=== PATIENT | male | born 1960 | race Caucasian/White ===

== ENCOUNTER 2020-12-28 14:15 | Observation (INO) | payer OTHER ==
[~2020-12-28] VITALS: Ht 175.3 cm; Wt 84.0 kg
[2020-12-28 15:12] LABS: BASO % 0 % (0-3); EOS # 0.1 x10^3/uL (0.0-0.7); EOS % 2 % (0-3); HEMATOCRIT 44.8 % (39.0-53.0); HEMOGLOBIN 15.3 g/dL (13.0-17.5); LYMPH # 1.4 x10^3/uL (1.0-4.8); LYMPH % 25 % (24-48); MEAN CORPUSCULAR HEMOGLOBIN 32 pg (25-35); MEAN CORPUSCULAR HGB CONC 34 g/dL (31-37); MEAN CORPUSCULAR VOLUME 93 fL (79-100); MONO # 0.5 x10^3/uL (0.0-1.1); MONO % 10 % (0-9); NEUT # 3.5 x10^3uL (1.8-7.7); NEUT % 63 % (31-73); PLATELET COUNT 272 x10^3/uL (140-400); RED CELL DISTRIBUTION WIDTH 13.2 % (11.5-14.5); WHITE BLOOD COUNT 5.6 x10^3/uL (4.0-11.0)
[2020-12-28 15:17] LABS: ALBUMIN 3.8 g/dL (3.4-5.0); ALBUMIN/GLOBULIN RATIO 1.2 (1.0-1.7); CREATININE 1.4 mg/dL (0.7-1.3); GFR 51.4; MAGNESIUM 2.4 mg/dL (1.8-2.4); POTASSIUM 3.9 mmol/L (3.5-5.1); TOTAL BILIRUBIN 0.6 mg/dL (0.2-1.0); TOTAL PROTEIN 7.1 g/dL (6.4-8.2)
[2020-12-28] MEDS ORDERED: MEMA10TA PO (15:47)
[2020-12-28] MEDS ORDERED: ASPI-889 PO (15:47)
[2020-12-28] MEDS ORDERED: ATOR10TA60 PO (15:47)
[2020-12-28] MEDS ORDERED: HALO50AM2 IM (15:47)
[2020-12-28] MEDS ORDERED: LORA2VIA6 PO (15:47)
[2020-12-28] MEDS ORDERED: MEDR150V3 IM (15:47)
[2020-12-28] MEDS ORDERED: HYDR25TA PO (15:47)
[2020-12-28] MEDS ORDERED: AMLO-187 PO (15:47)
[2020-12-28] MEDS ORDERED: HYDR12.572 PO (15:47)
[2020-12-28] MEDS ORDERED: DONE10TA7 PO (15:47)
[2020-12-28] MEDS ORDERED: LISI40TA6 PO (15:47)
[2020-12-28 16:59] VITALS: BP 143/84
[2020-12-28 17:25] LABS: BILIRUBIN,URINE SMALL (NEG); CLARITY,URINE CLEAR; COLOR,URINE YELLOW; GLUCOSE,URINE NEG (NEG); NITRITE,URINE NEG (NEG)
[2020-12-28 17:28] LABS: BACTERIA,URINE FEW /HPF (0-FEW); RBC,URINE 0 /HPF (0-2); WBC,URINE OCC /HPF (0-4)
[2020-12-28 17:29] LABS: SQUAMOUS EPITHELIAL CELL,UR OCC /LPF
--- NOTE | 2020-12-28 17:54 | EKG ---
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
[2020-12-28 20:29] VITALS: BP 166/103
[2020-12-28] MEDS ORDERED: HALOPERIDOL LACT 5 MG/ML VIAL. IM PRN (21:00)
[2020-12-28] MEDS ORDERED: LORA2TAB89 PO (21:08)
[2020-12-28] MEDS ORDERED: hydrOXYzine HCL 25 MG TABLET PO SCH (21:30)
[2020-12-28] MEDS ORDERED: ATORVASTATIN CALCIUM 10 MG TABLET. PO SCH (21:30)
[2020-12-28] MEDS: LISINOPRIL 20 MG TABLET PO SCH (21:38)
[2020-12-28] MEDS: MEMANTINE 10 MG TABLET. PO SCH (21:38)
[2020-12-28] MEDS: LORazepam 1 MG TABLET PO PRN (21:38)
[2020-12-28] MEDS: amLODIPine BESYLATE 10 MG TABLET PO SCH (21:38)
[2020-12-29 02:09] LABS: HEMOGLOBIN A1C 5.9 % (4.8-5.6)
[2020-12-29 07:40] VITALS: BP 131/88
[2020-12-29] MEDS: LISINOPRIL 20 MG TABLET PO SCH (08:15)
[2020-12-29 08:16] VITALS: BP 131/88
[2020-12-29] MEDS: amLODIPine BESYLATE 10 MG TABLET PO SCH (08:16)
[2020-12-29] MEDS: LORazepam 1 MG TABLET PO PRN (08:16)
[2020-12-29] MEDS: MEMANTINE 10 MG TABLET. PO SCH (08:19)
[2020-12-29] MEDS ORDERED: ASPIRIN ENTERIC COATED 81 MG TABLET.DR. PO SCH (09:00)
[2020-12-29] MEDS ORDERED: DONEPEZIL HCL 10 MG TABLET PO SCH (09:00)
[2020-12-29] MEDS ORDERED: hydroCHLOROthiazide 12.5 MG CAPSULE PO SCH (09:00)
--- NOTE | 2020-12-29 09:12 | HP ---
ADMIT DATE: 12/28/2020 ATTENDING PHYSICIAN: Joey Blanca MD We are asked to admit this patient for eventual admission to the Senior Behavioral Unit. He is here for screening for COVID. HISTORY OF PRESENT ILLNESS: The patient is 60 years old. He lives at [facility] in [place], [place]. He is profoundly demented. Unfortunately, he is acting up very impulsive. He jumped out of a window, entered someone else's room, picked up a hammer, threatened people. He is depressed, anxious, restless, refused care. He was admitted for evaluation and adjustment of his medication. PAST MEDICAL HISTORY: In addition to the dementia is significant for hypertension and hyperlipidemia. ALLERGIES: He has no known drug allergies. CURRENT MEDICATIONS: Include amlodipine, aspirin, Lipitor, Aricept, Haldol, hydrochlorothiazide, lisinopril, lorazepam, medroxyprogesterone acetate and Namenda. SOCIAL HISTORY: He is a nonsmoker, nondrinker. FAMILY HISTORY: Unobtainable. REVIEW OF SYSTEMS: Unobtainable due to the patient's condition. PHYSICAL EXAMINATION: GENERAL: When I saw him, this is very agitated and profound gentleman, who is very impulsive. He is not aware of place or time. VITAL SIGNS: Initial vital signs showed a blood pressure of 131/88 mmHg, pulse is 85 per minute and regular, temperature 97.9 degrees Fahrenheit. His oxygen saturation are 98% on room air. HEENT: Head is without trauma. Pupils are reactive. Sclerae nonicteric. Oropharynx is clear. NECK: Supple. No bruits identified. LUNGS: Otherwise clear. CARDIOVASCULAR: Regular heart tones. No gallops. ABDOMEN: Soft. EXTREMITIES: Without edema. Neurologic: The patient is nonverbal to me. He is a little bit lethargic. He has no focal deficits. We cannot do a full neurologic exam due to the patient's confusion. PERTINENT LABORATORY STUDIES: His electrolytes are within normal range. Creatinine is 1.4 mg percent. Hemoglobin A1c 5.9. Hemoglobin maintained at 15.3 grams per deciliter with a white count of 5600. COVID serology is pending. ASSESSMENT: 1. A 60-year-old gentleman, intermediate resident with profound dementia. 2. Behavioral issues with agitation. 3. Hypertension, currently normotensive. 4. Hyperlipidemia. PLAN: 1. Admit to the medical floor. 2. Await coronavirus swab. 3. Continue home meds. 4. Diet as tolerated. 5. I will transfer him upstairs when his coronavirus swab is negative. LAURIE/LYN DR: Michael TID: [id number] CC: ABRIL MARTINEZ MD
--- NOTE | 2020-12-29 09:17 | DS ---
DATE OF DISCHARGE: 12/29/2020 ATTENDING PHYSICIAN: Dr. Blanca. FINAL DISCHARGE DIAGNOSES: 1. Profound dementia with behavioral issues. 2. Hypertension. 3. Hyperlipidemia. HISTORY AND PHYSICAL: The patient is a 60-year-old gentleman, admitted to the medical floor for hold prior to going to the Senior Behavioral Unit. PHYSICAL EXAMINATION: Please see the dictated note. PERTINENT LABORATORY AND X-RAY STUDIES: Normal CBC with differential. Chemistry panel unremarkable. Creatinine 1.4 mg/dL and his coronavirus swab was negative. COURSE IN THE HOSPITAL: Home meds were restarted. He was discharged then to the Senior Behavioral Unit. No changes in medication. We will continue the amlodipine, aspirin, Lipitor, Aricept, Haldol, hydrochlorothiazide, lisinopril, lorazepam and Namenda. Doses unchanged. He was discharged in stable condition with explicit drug and followup care. LAURIE/SHAWN DR: Michael TID: [id number] CC: ABRIL MARTINEZ MD
--- NOTE | 2020-12-29 19:12 | RAD ---
Site ID: [id number] EXAMINATION: XR NECK SOFT TISSUE, XR CHEST 1V. HISTORY: 60 years Male Reason: POSSIBLE FOREIGN BODY. UNABLE TO SWALLOW / Spl. Instructions: / His tory: . . COMPARISON: None. Findings: 2 views soft tissue of the neck demonstrate no radiopaque foreign body except for dental filling and implants. The airway appears patent. There are prominent degenerative changes with large anterior ost eophytes seen in the mid and lower cervical spine levels. PA radiograph of the chest: The lungs are clear. The heart size is normal. There is no effusion or pneumothorax. The mediastinum and jason appear unremarkable. Impression: No acute process. Electronically signed by: Selvin Burns MD (12/29/2020 7:10 PM) [id number]
[2020-12-29 20:10] LABS: THYROID STIM HORMONE (TSH) 0.937 uIU/mL (0.358-3.740)
== END 2020-12-29 09:15 | disposition short-term general hospital (02) ==
LOC: 1 SOUTH 14:15 → INTOOBSV 14:15
PROVIDERS: ADMIT Hospitalist; ATTEND Hospitalist
DX: F03.91 Unspecified dementia, unspecified severity, with behavioral disturbance (principal); Z20.822 Contact with and (suspected) exposure to COVID-19; R45.1 Restlessness and agitation; I10 Essential (primary) hypertension; E78.5 Hyperlipidemia, unspecified; F32.9 Major depressive disorder, single episode, unspecified; Z79.899 Other long term (current) drug therapy; Z98.890 Other specified postprocedural states; Z79.82 Long term (current) use of aspirin; W13.4XXA Fall from, out of or through window, initial encounter; Y93.39 Activity, other involving climbing, rappelling and jumping off; Y92.89 Other specified places as the place of occurrence of the external cause; Y99.8 Other external cause status
CPT/HCPCS: 36415; 70360; 71045; 80053; 80061; 81001; 82306; 82607; 83036; 83735; 84443; 85025; 85379; 86592; 87426; 93005; G0378; G0379; U0003

== ENCOUNTER 2020-12-29 09:17 | Inpatient (IN) | payer OTHER ==
[~2020-12-29] VITALS: Ht 175.3 cm; Wt 85.4 kg
[~2020-12-29 09:17] MED LIST: AMLO-187 PO; ASPI-889 PO; ATOR10TA60 PO; DONE10TA7 PO; HALO50AM2 IM; HYDR12.572 PO; HYDR25TA PO; LISI40TA6 PO; LORA2TAB89 PO; LORA2VIA6 PO; MEDR150V3 IM; MEMA10TA PO
--- NOTE | 2020-12-29 10:56 | NUR ---
EDMUNDO returned call to Melissa, NANDO at [facility] and gave her an update on pt. EDMUNDO informed Melissa of pt incident of attempting to get out the window on the medical floor; however, with him coming up to the unit, he will not be able to do so. Melissa will call Friday, in which EDMUNDO told her to ask for nursing as SW will be out for the holiday or EDMUNDO could check in with her on Friday with an update.
[2020-12-29] MEDS ORDERED: METHYL SALICYLATE/MENTHOL TOPICAL OINTMENT 57GM TUBE. TP PRN (11:15)
[2020-12-29] MEDS ORDERED: MAGNESIUM HYDROXIDE 2,400 MG/30 ML ORAL.SUSP. PO PRN (11:15)
[2020-12-29] MEDS ORDERED: ACETAMINOPHEN 325 MG TABLET PO PRN (11:15)
[2020-12-29] MEDS ORDERED: MAG HYDROX/AL HYDROX/SIMETH 30 ML ORAL.SUSP PO PRN (11:15)
--- NOTE | 2020-12-29 11:17 | NUR ---
Admission Note with Justification for Admission to [facility] Patient admitted to [facility] for protective oversight for emergency stabilization of acute psychiatric crisis. Pt admitted from: 1 south at 0855 via w/c where pt had been admitted for screening from his LTC Facility [facility] Mode of arrival: w/c Accompanied By: [facility] Staff Precipitating behaviors that initiated intake and admission: climbed out a window at his facility then climbed in the window of a house with a hammer, refusing cares, anxious, restless, slapped staff Description of failure of out patient attempts at stabilization in previous setting list behavior and medication trials: redirection, ER visit at [facility], [facility], med changes Behaviors and assessment findings upon admission: pt was brought to [facility] early as he was found climbing out the window on the medical floor, he is confused, oriented x2 to self and current town, drowsy, weaving gait Plan: Admit for protective oversight for adjustment and stabilization of medications, behaviors and mood. Intense treatment regimen including groups, medication adjustments, therapy, consistent regimen for ADL's, self care, and sleep hygiene. Daily monitoring by Inpatient staff, Psychiatry, and Medical Physician.
[2020-12-29 11:18] VITALS: BP 103/73
[2020-12-29] MEDS ORDERED: LORazepam 1 MG TABLET PO PRN (12:15)
--- NOTE | 2020-12-29 15:34 | NUR ---
Call placed to [facility] ([phone]) to inform that Chilo was admitted to [facility] this date and obtain authorization. Per Cody at [facility], patient is in no imminent risk to himself or others despite having eloped out his care facility window entering a neighbor's garage picking up a hammer and entering their home. It was also reported to Cody that Chilo had attempted to elope out hospital window and has had sexually inappropriate behavior. Cody requested to set up a peer to peer review. Peer to peer review has been scheduled for Dr. Smith at 6pm on 12/29/20, [facility] physician will call Dr. Smith for the review. SW contacted Sarahy, , to inform of above information and likeliness that Chilo will not be approved for in patient behavioral health treatment. Sarahy expressed that she plans to call her HR department for guidance as Chilo is covered by her insurance thru her employer.
[2020-12-29 15:53] VITALS: BP 133/90
--- NOTE | 2020-12-29 16:51 | NUR ---
[facility] Social Work Discharge Planning Form Patient Name MARCELINA GALVAN Admit Date: 29 Dec 2020 DISCHARGE PLAN Discharge Destination: Pt to discharge back to [facility] Assessment: N/A Level II Assessment: N/A Transportation: Facility will have to arrangement transportation. Special Instructions/Notes: Please fax over discharge orders, discharge medication list and discharge summary to the fax number listed below. DISCHARGE TO FACILITY Facility: [facility] Address: [address] [place] [address]; [place] [address] Contact Name: Melissa Estevez, Bladder Trimmer: Contact Name: Please ask to speak with the nurse caring for pt upon admission PCP: Shahbaz Montana
--- NOTE | 2020-12-29 18:18 | NUR ---
Nsg note; CT chest at approx 1745 in the dining room, the pt started vomiting. he had excessive amt of saliva that he was unable to swallow so he spit it out. there were no issues with his airway except for the concern of the excessive saliva. he became restless and got out of his chair and was difficult to redirect. his eyes started watering and he developed hiccups. dr babin was called and ordered a CT chest and neck to rule out a esophageal food bolus. pt is currently in radiology accomp by a staff member
--- NOTE | 2020-12-29 19:33 | NUR ---
Insurance DID NOT call Dr. Smith for insurance review as they were scheduled to do.
[2020-12-29] MEDS ORDERED: SCOPOLAMINE 1.5MG PATCH. TD ONE (20:00)
[2020-12-29] MEDS: hydrOXYzine HCL 25 MG TABLET PO SCH (20:28)
[2020-12-29] MEDS: ATORVASTATIN CALCIUM 10 MG TABLET. PO SCH (20:28)
[2020-12-29] MEDS: MEMANTINE 10 MG TABLET. PO SCH (20:28)
--- NOTE | 2020-12-29 21:49 | PDOC ---
Exam Note: Tereso Note: Please also refer to the separate dictated note~for this date of service dictated separately.~Patient seen individually. Discussed the patient with Nursing staff reviewed the chart.~Reviewed interim history and current functioning. Reviewed vital signs,~Labs/ Radiology~and current medications noted below. Continue current treatment with the changes noted in the dictated addendum note Assessment: Vital Signs/I&O: Vital Signs Date Time Temp Pulse Resp B/P (MAP) Pulse Ox O2 Delivery O2 Flow Rate FiO2 12/29/20 15:53 98.2 104 16 133/90 (104) 95 Room Air Current Medications: Meds: Current Medications Medications (Trade) Dose Ordered Sig/Snow Route PRN Reason Start Time Stop Time Status Last Admin Dose Admin Atorvastatin Calcium (Lipitor) 10 mg QHS PO 12/29/20 21:00 12/29/20 20:28 Hydroxyzine HCl (Atarax) 50 mg QHS PO 12/29/20 21:00 12/29/20 20:28 Memantine (Namenda) 10 mg BID PO 12/29/20 21:00 12/29/20 20:28 Scopolamine (Transderm-Scop) 1 patch 1X ONCE TD 12/29/20 20:00 12/29/20 20:04 DC 12/29/20 20:29 I have reviewed the current psychotropics carefully including drug interactions. Risk benefit ratio favors no change other than as noted in my dictated progress note. Diagnosis: Problems: (1) Dementia with behavioral disturbance ABRIL MARTINEZ MD December 29, 2020 21:49
--- NOTE | 2020-12-29 23:15 | NUR ---
The patient is located in the day room on assumption of care. He continues to have excessive saliva production. No significant findings on X-ray. Dr. Evangelist bernardo, order for Scopolamine patch 1.5mg Q3 days ordered. At time of medication administration, patient appears to be feeling a bit better. This nurse asked if he felt able to take medications whole or if he would like them crushed. He opted for crushed and mixed with applesauce. He is disorganized and flat. Restless. He was compliant with assessments. No agitation. Patient denies any current pain or discomfort. He appears to be sleeping comfortably at present time. Will continue to monitor.
[2020-12-30 06:04] VITALS: BP 123/85
[2020-12-30] MEDS: hydroCHLOROthiazide 12.5 MG CAPSULE PO SCH (09:12)
[2020-12-30] MEDS: DONEPEZIL HCL 10 MG TABLET PO SCH (09:12)
[2020-12-30] MEDS: MEMANTINE 10 MG TABLET. PO SCH ×2 (09:12→20:40)
[2020-12-30] MEDS: amLODIPine BESYLATE 10 MG TABLET PO SCH (09:12)
[2020-12-30] MEDS: LISINOPRIL 20 MG TABLET PO SCH (09:13)
[2020-12-30] MEDS: ASPIRIN ENTERIC COATED 81 MG TABLET.DR. PO SCH (09:13)
[2020-12-30 15:46] VITALS: BP 112/71
[2020-12-30] MEDS ORDERED: DIVALPROEX 125 MG CAP.SPRINK PO ONE (19:00)
[2020-12-30] MEDS: ATORVASTATIN CALCIUM 10 MG TABLET. PO SCH (20:40)
[2020-12-30] MEDS: hydrOXYzine HCL 25 MG TABLET PO SCH (20:40)
--- NOTE | 2020-12-30 22:14 | PDOC ---
Exam Note: Tereso Note: Please also refer to the separate dictated note~for this date of service dictated separately.~Patient seen individually. Discussed the patient with Nursing staff reviewed the chart.~Reviewed interim history and current functioning. Reviewed vital signs,~Labs/ Radiology~and current medications noted below. Continue current treatment with the changes noted in the dictated addendum note Assessment: Vital Signs/I&O: Vital Signs Date Time Temp Pulse Resp B/P (MAP) Pulse Ox O2 Delivery O2 Flow Rate FiO2 12/30/20 15:46 97.8 82 16 112/71 (85) 94 12/30/20 06:04 Room Air I & O 12/29/20 12/29/20 12/30/20 15:00 23:00 07:00 Intake Total 240 ml Balance 240 ml Current Medications: Meds: Current Medications Medications (Trade) Dose Ordered Sig/Snow Route PRN Reason Start Time Stop Time Status Last Admin Dose Admin Acetaminophen (Tylenol) 650 mg PRN Q6HRS PRN PO MILD PAIN / TEMP > 100.3'F 12/29/20 11:15 Multi-Ingredient Ointment (Analgesic [place]) 1 dina PRN QID PRN TP MUSCLE PAIN 12/29/20 11:15 Al Hydroxide/Mg Hydroxide (Mylanta Plus Xs) 15 ml PRN AFTMEALHC PRN PO DYSPEPSIA 12/29/20 11:15 Magnesium Hydroxide (Milk Of Magnesia) 2,400 mg PRN QHS PRN PO CONSTIPATION 12/29/20 11:15 Amlodipine Besylate (Norvasc) 10 mg DAILY PO 12/30/20 09:00 12/30/20 09:12 Aspirin (Aspirin Enteric Coated) 81 mg DAILY PO 12/30/20 09:00 12/30/20 09:13 Atorvastatin Calcium (Lipitor) 10 mg QHS PO 12/29/20 21:00 12/30/20 20:40 Donepezil HCl (Aricept) 10 mg DAILY PO 12/30/20 09:00 12/30/20 09:12 Hydrochlorothiazide (Microzide) 12.5 mg DAILY PO 12/30/20 09:00 12/30/20 09:12 Hydroxyzine HCl (Atarax) 50 mg QHS PO 12/29/20 21:00 12/30/20 20:40 Memantine (Namenda) 10 mg BID PO 12/29/20 21:00 12/30/20 20:40 Lisinopril (Prinivil) 40 mg DAILY PO 12/30/20 09:00 12/30/20 09:13 Lorazepam (Ativan) 2 mg PRN Q8HRS PRN PO ANXIETY / AGITATION 12/29/20 12:15 Scopolamine (Transderm-Scop) 1 patch 1X ONCE TD 12/29/20 20:00 12/29/20 20:04 DC 12/29/20 20:29 Divalproex Sodium (Depakote Sprinkles) 250 mg 1X ONCE PO 12/30/20 19:00 12/30/20 19:01 DC 12/30/20 20:40 Divalproex Sodium (Depakote Sprinkles) 125 mg BID PO 12/31/20 09:00 Current Medications Medications (Trade) Dose Ordered Sig/Snow Route PRN Reason Start Time Stop Time Status Last Admin Dose Admin Amlodipine Besylate (Norvasc) 10 mg DAILY PO 12/30/20 09:00 12/30/20 09:12 Aspirin (Aspirin Enteric Coated) 81 mg DAILY PO 12/30/20 09:00 12/30/20 09:13 Donepezil HCl (Aricept) 10 mg DAILY PO 12/30/20 09:00 12/30/20 09:12 Hydrochlorothiazide (Microzide) 12.5 mg DAILY PO 12/30/20 09:00 12/30/20 09:12 Lisinopril (Prinivil) 40 mg DAILY PO 12/30/20 09:00 12/30/20 09:13 Divalproex Sodium (Depakote Sprinkles) 250 mg 1X ONCE PO 12/30/20 19:00 12/30/20 19:01 DC 12/30/20 20:40 I have reviewed the current psychotropics carefully including drug interactions. Risk benefit ratio favors no change other than as noted in my dictated progress note. Diagnosis: Problems: (1) Major neurocognitive disorder (2) Dementia with behavioral disturbance ABRIL MARTINEZ MD December 30, 2020 22:14
--- NOTE | 2020-12-30 23:44 | PN ---
DATE: 12/30/2020 PSYCHIATRIC PROGRESS NOTE This note covers elements not covered in my initial note 12/30/2020. SUBJECTIVE: I met with the patient in the evening of 12/30/2020 and staff had called me earlier in the day. The patient remains extremely impulsive. He is choking and possibly aspirating at one point, will defer medical management to Dr. Hernández. This evening he has been putting himself on the floor, anxious, restless, quite labile in his mood and somewhat paranoid. REVIEW OF SYSTEMS: No CV, , pulmonary, eye, ENT system symptoms on review. MENTAL STATUS EXAMINATION: Oriented to himself. Insight, judgment, recent and remote memory, attention, concentration, fund of knowledge poor consistent with his diagnosis. LABORATORY DATA: Reviewed. IMPRESSION: Major neurocognitive disorder, multifactorial, possibly Alzheimer, vascular frontotemporal with delusion, depression, behavioral disturbance, anxiety disorder, unspecified; impulse control disorder, unspecified. PLAN: I have carefully reviewed current psychotropics drug interactions. We will start Depakote sprinkles 125 mg at 9 a.m., 5:00 p.m. Check CBC, CMP, valproic acid level, ammonia level in 3 days. Consider adding an SSRI agent, perhaps Zoloft, may need Seroquel as an atypical antipsychotic. We will make further adjustments as clinically indicated. SHERRI QUINTERO: Kamla TID: [id number]
--- NOTE | 2020-12-30 23:56 | NUR ---
Pt restless and wandering unit this evening. Pt has flat affect and refused to speak and respond to questions. Pt put himself on the floor and refused to get up. Pt refused HS medications but later was compliant.
--- NOTE | 2020-12-30 23:58 | HP ---
ADMIT DATE: 12/29/2020 This is a late entry, date of service 12/29, covers elements not covered in my initial note of 12/29. I met with the patient evening of 12/29 for this evaluation. Previously discussed with, Kori Mc, patient coordinator several times including prior to admission and since admission regarding discussion about [id number] review with the physician from [facility]. I was supposed to receive a call at 6:00 p.m. on 12/29 from the physician reviewed, but never received this call for the prior authorization. IDENTIFYING DATA: The patient is a 66-year-old male referred to us from [facility] on account of worsening dementia, agitation. The patient's behaviors have been dangerous. He tried to jump out of a window, was pacing the hallways, laughing inappropriately "wanting to go." He had entered someone's home and picked up a hammer. Behaviors were deemed dangerous, unmanageable, had failed outpatient psychiatric interventions resulting in this referral. He was refusing cares, depressed, anxious, restless, rearranging furniture, slapped staff on the butt. CHIEF COMPLAINT:."No." The patient is quite confused, demented. He was on [facility] medical-surgical floor prior to coming to the [facility] health unit psychiatry service when he was having a PCR test for the COVID-19. At that time, he was found trying to jump out of a second floor window and a passerby noticed him trying to jump out of the window, alerted the nursing staff when he was nabbed just in time. The fall itself could have been significantly dangerous from that height. The patient has had progressive dementia, delusions, sleep and appetite changes, paranoia and extreme impulsive behaviors noted above. PAST PSYCHIATRIC HISTORY: As above. PAST MEDICAL HISTORY: Positive for hypertension, hyperlipidemia. DRUG ALLERGIES: Negative. CODE STATUS: Full code. ACCU-CHEKS: None. Ambulates independently. DIET: Regular. MEDICATIONS: Takes medications whole. Current psychotropics, hydroxyzine 50 mg at bedtime, Namenda 10 mg b.i.d., Aricept 10 mg a day. FAMILY HISTORY: Noncontributory. SOCIAL HISTORY: No history of alcohol, drug abuse, physical, sexual or elder abuse. He is not known to be a perpetrator. Reaction to hospitalization, the patient oblivious of it. REVIEW OF SYSTEMS: No CV, , pulmonary, eye, ENT system symptoms on review. MENTAL STATUS EXAMINATION: Oriented to himself. Insight, judgment, recent and remote memory, attention, concentration, fund of knowledge poor consistent with his diagnosis. IMPRESSION: Major neurocognitive disorder, unspecified, perhaps Alzheimer, vascular, frontotemporal with delusion, depression, behavioral disturbance, anxiety disorder, unspecified; impulse control disorder, unspecified. The patient was also noted to be an aspiration risk. Rest of diagnoses as noted above. PLAN: Admit to geropsychiatry unit at [facility]. I see the patient daily individually from a psychiatric standpoint. Medical followup with Dr. Pope/Dr. Blanca. Continue the patient on his current psychotropics. Observe baseline. Consider Depakote for his impulse control problems. Start Depakote sprinkles 125 mg 9.00 a.m. and 5:00 p.m. Check CBC, CMP, valproic acid level, ammonia level in 3 days. Consider SSRIs for mood and anxiety symptoms. If there were delusions, hallucinations noted, we will use atypical antipsychotics. ESTIMATED LENGTH OF STAY: 10-12 days. DISPOSITION PLANS: Back to [facility] and stable. YI/OZZY DR: YI/socorro TID: [id number]
[2020-12-31 05:31] VITALS: BP 112/76
--- NOTE | 2020-12-31 07:36 | RAD ---
CT HEAD/BRAIN WO Date: 12/31/2020 6:22 AM Clinical Indication: confusion, ams Comparison: None. Technique: 5 mm axial tomographic images were obtained of the head without contrast. These were view ed on brain and bone windows. One or more of the following dose reduction techniques were utilized: A utomated exposure control (AEC), Adjustment of mA and/or kV according to patient size, Use of iterati ve reconstruction technique such as ASiR, CT scan done according to ALARA and image gently/image dumont ly Findings: Mild generalized cerebral and cerebellar volume loss. Moderate nonspecific periventricular hypoattenu ation, most commonly seen with chronic small vessel ischemic disease. Calcified atherosclerosis of th e bilateral cavernous and paraclinoid internal carotid arteries. No intra- or extra-axial mass or fluid collection. No acute hemorrhage. The ventricles are normal in size, shape, and morphology. The sotelo-white matter junction is normal. The subarachnoid cisterns are patent. The visualized paranasal sinuses are normal. The visualized portions of the orbits and globes are no rmal. The mastoid air cells are clear. The grant officer topogram shows no lytic lesion or fracture. Impression: No acute intracranial process. Mild cerebral volume loss. Moderate chronic small vessel ischemic disease. Electronically signed by: Jose David Hernandez MD (12/31/2020 7:34 AM) [id number]
[2020-12-31] MEDS: DIVALPROEX 125 MG CAP.SPRINK PO SCH ×2 (08:10→19:59)
[2020-12-31] MEDS: ASPIRIN ENTERIC COATED 81 MG TABLET.DR. PO SCH (08:11)
[2020-12-31] MEDS: MEMANTINE 10 MG TABLET. PO SCH ×2 (08:11→19:59)
[2020-12-31] MEDS: amLODIPine BESYLATE 10 MG TABLET PO SCH (08:11)
[2020-12-31] MEDS: DONEPEZIL HCL 10 MG TABLET PO SCH (08:11)
[2020-12-31] MEDS: LISINOPRIL 20 MG TABLET PO SCH (08:11)
[2020-12-31] MEDS: hydroCHLOROthiazide 12.5 MG CAPSULE PO SCH (08:11)
--- NOTE | 2020-12-31 10:11 | NUR ---
Pt has mild restlessness this morning. Multiple attempts were made by him to self exit w/c, this nurse provided encouragement and education about fall risk and he agreed to stay in w/c. He is A&O to self and place only. He reports mild pain in his neck d/t sleeping in an uncomfortable position. He is absent of SI/HI/VH/AH/delusions at this time. He is compliant with medications crushed and mixed with chocolate milk. Plan of care continues, will pass to next shift.
--- NOTE | 2020-12-31 11:38 | NUR ---
Pt has begun vomiting heavy amounts of saliva and food. This severe vomiting occurred the late afternoon of 12/29/20. Pt denies pain or discomfort. BS active. Dr Evangelist nath and the following orders were given: Swallow eval, thin liquids only, hold all PO medications, run obstructive series.
[2020-12-31 15:40] VITALS: BP 106/70
--- NOTE | 2020-12-31 19:02 | RAD ---
Study: XR ABDOMEN COMP ACUTE Indication: Frequent vomiting. Comparison: None. Findings: No confluent airspace infiltrate, pleural effusion or pneumothorax. Within normal limits cardiomedias tinal silhouette and jason. The bowel gas pattern is nonobstructive. No pneumoperitoneum. Only a small amount of well-formed stool within the colon. Impression: 1. Nonobstructive bowel gas pattern. No pneumoperitoneum. 2. No acute radiographic abnormality of the chest. Electronically signed by: DENEEN HERNDON MD (12/31/2020 7:00 PM) [facility]
[2020-12-31] MEDS: hydrOXYzine HCL 25 MG TABLET PO SCH (19:59)
[2020-12-31] MEDS: ATORVASTATIN CALCIUM 10 MG TABLET. PO SCH (19:59)
--- NOTE | 2020-12-31 22:09 | PDOC ---
Exam Note: Tereso Note: Please also refer to the separate dictated note~for this date of service dictated separately.~Patient seen individually. Discussed the patient with Nursing staff reviewed the chart.~Reviewed interim history and current functioning. Reviewed vital signs,~Labs/ Radiology~and current medications noted below. Continue current treatment with the changes noted in the dictated addendum note Assessment: Vital Signs/I&O: Vital Signs Date Time Temp Pulse Resp B/P (MAP) Pulse Ox O2 Delivery O2 Flow Rate FiO2 12/31/20 15:40 98.7 66 18 106/70 (82) 99 12/30/20 06:04 Room Air I & O 12/30/20 12/30/20 12/31/20 15:00 23:00 07:00 Intake Total 120 ml 120 ml Balance 120 ml 120 ml Current Medications: Meds: Current Medications Medications (Trade) Dose Ordered Sig/Snow Route PRN Reason Start Time Stop Time Status Last Admin Dose Admin Acetaminophen (Tylenol) 650 mg PRN Q6HRS PRN PO MILD PAIN / TEMP > 100.3'F 12/29/20 11:15 Multi-Ingredient Ointment (Analgesic [place]) 1 dina PRN QID PRN TP MUSCLE PAIN 12/29/20 11:15 Al Hydroxide/Mg Hydroxide (Mylanta Plus Xs) 15 ml PRN AFTMEALHC PRN PO DYSPEPSIA 12/29/20 11:15 Magnesium Hydroxide (Milk Of Magnesia) 2,400 mg PRN QHS PRN PO CONSTIPATION 12/29/20 11:15 Amlodipine Besylate (Norvasc) 10 mg DAILY PO 12/30/20 09:00 12/31/20 08:11 Aspirin (Aspirin Enteric Coated) 81 mg DAILY PO 12/30/20 09:00 12/31/20 08:11 Atorvastatin Calcium (Lipitor) 10 mg QHS PO 12/29/20 21:00 12/30/20 20:40 Donepezil HCl (Aricept) 10 mg DAILY PO 12/30/20 09:00 12/31/20 08:11 Hydrochlorothiazide (Microzide) 12.5 mg DAILY PO 12/30/20 09:00 12/31/20 08:11 Hydroxyzine HCl (Atarax) 50 mg QHS PO 12/29/20 21:00 12/30/20 20:40 Memantine (Namenda) 10 mg BID PO 12/29/20 21:00 12/31/20 08:11 Lisinopril (Prinivil) 40 mg DAILY PO 12/30/20 09:00 12/31/20 08:11 Lorazepam (Ativan) 2 mg PRN Q8HRS PRN PO ANXIETY / AGITATION 12/29/20 12:15 Scopolamine (Transderm-Scop) 1 patch 1X ONCE TD 12/29/20 20:00 12/29/20 20:04 DC 12/29/20 20:29 Divalproex Sodium (Depakote Sprinkles) 250 mg 1X ONCE PO 12/30/20 19:00 12/30/20 19:01 DC 12/30/20 20:40 Divalproex Sodium (Depakote Sprinkles) 125 mg BID PO 12/31/20 09:00 12/31/20 08:10 Current Medications Medications (Trade) Dose Ordered Sig/Snow Route PRN Reason Start Time Stop Time Status Last Admin Dose Admin Divalproex Sodium (Depakote Sprinkles) 125 mg BID PO 12/31/20 09:00 12/31/20 08:10 I have reviewed the current psychotropics carefully including drug interactions. Risk benefit ratio favors no change other than as noted in my dictated progress note. Diagnosis: Problems: (1) Dementia in Alzheimer's disease with depression (2) Dementia in Alzheimer's disease with delusions (3) Dementia, vascular, with delusions (4) Dementia, vascular, with depression (5) Anxiety disorder, unspecified (6) Impulse control disorder, unspecified (7) Major neurocognitive disorder ABRIL MARTINEZ MD December 31, 2020 22:09
--- NOTE | 2020-12-31 22:57 | NUR ---
Pt's HS medications held d/t Dr. Blanca's orders. Pt wandering unit, intrusive with other pts. Pt found laying in other pt's beds numerous times. Agitated and combative with redirection. Restless once taken to bed.
[2021-01-01 06:19] VITALS: BP 100/66
--- NOTE | 2021-01-01 07:04 | PDOC ---
Exam Note: Tereso Note: This note is a late entry for 12/31/2020 covers elements not covered in my initial note. Subjective: The patient was seen individually in the evening of 12/31/2020 with Aissatou BOWLING, discussed and reviewed the chart. He has had some projectile vomiting. Dr. Blanca has recommended for the patient to be NPO. CT abdomen unremarkable. CT head unremarkable. Review of Systems: Ambulation impaired in wheelchair due to unsteady gait but then ambulating better in the evening. No CV, , pulmonary, eye, ENT system symptoms on review. Mental Status Exam: The patient is oriented to himself. Insight and judgment, recent and remote memory, attention and concentration, fund of knowledge is poor consistent with his diagnoses. Laboratory Data: Reviewed. Impression: Major neurocognitive disorder Alzheimer vascular with delusion, depression, behavioral disturbance. Anxiety disorder unspecified. Impulse control disorder unspecified. Plan: We are unable to start psychotropics given his medical condition. We will reassess when we are able to give him oral meds. Risk-benefit ratio favors no intramuscular psychotropics for now. Assessment: Vital Signs/I&O: Vital Signs Date Time Temp Pulse Resp B/P (MAP) Pulse Ox O2 Delivery O2 Flow Rate FiO2 01/01/21 06:19 98.2 67 16 100/66 (77) 96 12/30/20 06:04 Room Air I & O 12/31/20 12/31/20 01/01/21 14:59 22:59 06:59 Intake Total 480 ml 540 ml Balance 480 ml 540 ml Current Medications: Meds: Current Medications Medications (Trade) Dose Ordered Sig/Snow Route PRN Reason Start Time Stop Time Status Last Admin Dose Admin Acetaminophen (Tylenol) 650 mg PRN Q6HRS PRN PO MILD PAIN / TEMP > 100.3'F 12/29/20 11:15 Multi-Ingredient Ointment (Analgesic [place]) 1 dina PRN QID PRN TP MUSCLE PAIN 12/29/20 11:15 Al Hydroxide/Mg Hydroxide (Mylanta Plus Xs) 15 ml PRN AFTMEALHC PRN PO DYSPEPSIA 12/29/20 11:15 Magnesium Hydroxide (Milk Of Magnesia) 2,400 mg PRN QHS PRN PO CONSTIPATION 12/29/20 11:15 Amlodipine Besylate (Norvasc) 10 mg DAILY PO 12/30/20 09:00 12/31/20 08:11 Aspirin (Aspirin Enteric Coated) 81 mg DAILY PO 12/30/20 09:00 12/31/20 08:11 Atorvastatin Calcium (Lipitor) 10 mg QHS PO 12/29/20 21:00 12/30/20 20:40 Donepezil HCl (Aricept) 10 mg DAILY PO 12/30/20 09:00 12/31/20 08:11 Hydrochlorothiazide (Microzide) 12.5 mg DAILY PO 12/30/20 09:00 12/31/20 08:11 Hydroxyzine HCl (Atarax) 50 mg QHS PO 12/29/20 21:00 12/30/20 20:40 Memantine (Namenda) 10 mg BID PO 12/29/20 21:00 12/31/20 08:11 Lisinopril (Prinivil) 40 mg DAILY PO 12/30/20 09:00 12/31/20 08:11 Lorazepam (Ativan) 2 mg PRN Q8HRS PRN PO ANXIETY / AGITATION 12/29/20 12:15 Scopolamine (Transderm-Scop) 1 patch 1X ONCE TD 12/29/20 20:00 12/29/20 20:04 DC 12/29/20 20:29 Divalproex Sodium (Depakote Sprinkles) 250 mg 1X ONCE PO 12/30/20 19:00 12/30/20 19:01 DC 12/30/20 20:40 Divalproex Sodium (Depakote Sprinkles) 125 mg BID PO 12/31/20 09:00 12/31/20 08:10 Current Medications Medications (Trade) Dose Ordered Sig/Snow Route PRN Reason Start Time Stop Time Status Last Admin Dose Admin Divalproex Sodium (Depakote Sprinkles) 125 mg BID PO 12/31/20 09:00 12/31/20 08:10 I have reviewed the current psychotropics carefully including drug interactions. Risk benefit ratio favors no change other than as noted in my dictated progress note. Diagnosis: Problems: (1) Dementia with behavioral disturbance (2) Major neurocognitive disorder (3) Impulse control disorder, unspecified (4) Anxiety disorder, unspecified (5) Dementia, vascular, with depression (6) Dementia, vascular, with delusions (7) Dementia in Alzheimer's disease with depression (8) Dementia in Alzheimer's disease with delusions ABRIL MARTINEZ MD January 01, 2021 07:04
--- NOTE | 2021-01-01 10:30 | NUR ---
Following orders received from Dr Blanca: upgrade diet to full liquid, resume administration of PO medications.
--- NOTE | 2021-01-01 10:45 | NUR ---
ACTIVITY THERPAY ASSESSMENT completed based on notes, observation and interview. Pt was unwilling to answer assessment questions. Pt was laying in his bed with the lights off. Per notes pt has been moved to a wheelchair because he is unsteady at times. Pt attened an Activity Therapy group and interacted well with peers and staff. Pt danced to [facility] and answered group discussion questions. Per notes pt refuses to answer questions at times and can be restless. Pt placed himself on the floor and refused to get up. Initial goal aimed to increase socialization and engagement. Pt will participate in at least three individual or group Activity Therapy sessions per week. Addendum: 01/01/21 at 1046 by MARLON SAWYER ACT ACTIVITY THERAPY ASSESSMENT AT 1020
--- NOTE | 2021-01-01 13:16 | NUR ---
Pt has been in bed all day after breakfast. He has been appropriate with his interactions with others. He denies SI/HI/VH/AH/delusions/pain. He denies N/V. He is flat in affect and expresses no emotion on his face. After assessment he stated he wanted to go back to bed and sleep some more. Plan of care continues, will pass to next shift.
[2021-01-01] MEDS: DONEPEZIL HCL 10 MG TABLET PO SCH (13:58)
[2021-01-01] MEDS: hydroCHLOROthiazide 12.5 MG CAPSULE PO SCH (13:58)
[2021-01-01] MEDS: ASPIRIN ENTERIC COATED 81 MG TABLET.DR. PO SCH (13:58)
[2021-01-01] MEDS: MEMANTINE 10 MG TABLET. PO SCH ×2 (13:58→20:03)
[2021-01-01] MEDS: DIVALPROEX 125 MG CAP.SPRINK PO SCH ×2 (13:58→20:04)
[2021-01-01] MEDS: LISINOPRIL 20 MG TABLET PO SCH (13:58)
[2021-01-01] MEDS: amLODIPine BESYLATE 10 MG TABLET PO SCH (13:59)
[2021-01-01 16:00] VITALS: BP 100/67
[2021-01-01] MEDS: ATORVASTATIN CALCIUM 10 MG TABLET. PO SCH (20:03)
[2021-01-01] MEDS: hydrOXYzine HCL 25 MG TABLET PO SCH (20:04)
--- NOTE | 2021-01-01 22:12 | PDOC ---
Exam Note: Tereso Note: Please also refer to the separate dictated note~for this date of service dictated separately.~Patient seen individually. Discussed the patient with Nursing staff reviewed the chart.~Reviewed interim history and current functioning. Reviewed vital signs,~Labs/ Radiology~and current medications noted below. Continue current treatment with the changes noted in the dictated addendum note Assessment: Vital Signs/I&O: Vital Signs Date Time Temp Pulse Resp B/P (MAP) Pulse Ox O2 Delivery O2 Flow Rate FiO2 01/01/21 16:00 98.2 67 18 100/67 (78) 97 12/30/20 06:04 Room Air I & O 12/31/20 12/31/20 01/01/21 15:00 23:00 07:00 Intake Total 480 ml 540 ml Balance 480 ml 540 ml Current Medications: Meds: Current Medications Medications (Trade) Dose Ordered Sig/Snow Route PRN Reason Start Time Stop Time Status Last Admin Dose Admin Acetaminophen (Tylenol) 650 mg PRN Q6HRS PRN PO MILD PAIN / TEMP > 100.3'F 12/29/20 11:15 Multi-Ingredient Ointment (Analgesic [place]) 1 dina PRN QID PRN TP MUSCLE PAIN 12/29/20 11:15 Al Hydroxide/Mg Hydroxide (Mylanta Plus Xs) 15 ml PRN AFTMEALHC PRN PO DYSPEPSIA 12/29/20 11:15 Magnesium Hydroxide (Milk Of Magnesia) 2,400 mg PRN QHS PRN PO CONSTIPATION 12/29/20 11:15 Amlodipine Besylate (Norvasc) 10 mg DAILY PO 12/30/20 09:00 01/01/21 13:59 Aspirin (Aspirin Enteric Coated) 81 mg DAILY PO 12/30/20 09:00 01/01/21 13:58 Atorvastatin Calcium (Lipitor) 10 mg QHS PO 12/29/20 21:00 01/01/21 20:03 Donepezil HCl (Aricept) 10 mg DAILY PO 12/30/20 09:00 01/01/21 13:58 Hydrochlorothiazide (Microzide) 12.5 mg DAILY PO 12/30/20 09:00 01/01/21 13:58 Hydroxyzine HCl (Atarax) 50 mg QHS PO 12/29/20 21:00 01/01/21 20:04 Memantine (Namenda) 10 mg BID PO 12/29/20 21:00 01/01/21 20:03 Lisinopril (Prinivil) 40 mg DAILY PO 12/30/20 09:00 01/01/21 13:58 Lorazepam (Ativan) 2 mg PRN Q8HRS PRN PO ANXIETY / AGITATION 12/29/20 12:15 Scopolamine (Transderm-Scop) 1 patch 1X ONCE TD 12/29/20 20:00 12/29/20 20:04 DC 12/29/20 20:29 Divalproex Sodium (Depakote Sprinkles) 250 mg 1X ONCE PO 12/30/20 19:00 12/30/20 19:01 DC 12/30/20 20:40 Divalproex Sodium (Depakote Sprinkles) 125 mg BID PO 12/31/20 09:00 01/01/21 20:04 I have reviewed the current psychotropics carefully including drug interactions. Risk benefit ratio favors no change other than as noted in my dictated progress note. Diagnosis: Problems: (1) Dementia with behavioral disturbance (2) Major neurocognitive disorder (3) Impulse control disorder, unspecified (4) Anxiety disorder, unspecified (5) Dementia, vascular, with depression (6) Dementia, vascular, with delusions (7) Dementia in Alzheimer's disease with depression (8) Dementia in Alzheimer's disease with delusions ABRIL MARTINEZ MD January 01, 2021 22:12
--- NOTE | 2021-01-01 22:17 | NUR ---
Pt highly restless this evening. Pt pacing hallways, up and down from bed and from sitting in dayroom. Compliant with medications. Once placed in bed, pt up and down numerous times and irritable with redirection. Pt currently awake and attempting to come out of his room every few minutes.
[2021-01-02 06:12] VITALS: BP 101/67
[2021-01-02 06:39] LABS: BASO % 1 % (0-3); EOS # 0.2 x10^3/uL (0.0-0.7); EOS % 3 % (0-3); HEMATOCRIT 42.4 % (39.0-53.0); HEMOGLOBIN 14.5 g/dL (13.0-17.5); LYMPH # 2.1 x10^3/uL (1.0-4.8); LYMPH % 33 % (24-48); MEAN CORPUSCULAR HEMOGLOBIN 32 pg (25-35); MEAN CORPUSCULAR HGB CONC 34 g/dL (31-37); MEAN CORPUSCULAR VOLUME 93 fL (79-100); MONO # 0.9 x10^3/uL (0.0-1.1); MONO % 14 % (0-9); NEUT # 3.1 x10^3uL (1.8-7.7); NEUT % 49 % (31-73); PLATELET COUNT 275 x10^3/uL (140-400); RED BLOOD COUNT 4.57 x10^6/uL (4.30-5.70); RED CELL DISTRIBUTION WIDTH 12.7 % (11.5-14.5); WHITE BLOOD COUNT 6.3 x10^3/uL (4.0-11.0)
[2021-01-02 06:55] LABS: ALBUMIN 3.4 g/dL (3.4-5.0); ALK PHOS 87 U/L (46-116); ALT (SGPT) 16 U/L (16-63); ANION GAP 10 (6-14); AST (SGOT) 13 U/L (15-37); BLOOD UREA NITROGEN 20 mg/dL (8-26); BUN/CREATININE RATIO 14 (6-20); CALCIUM 8.7 mg/dL (8.5-10.1); CARBON DIOXIDE 25 mmol/L (21-32); CHLORIDE 107 mmol/L (98-107); CREATININE 1.4 mg/dL (0.7-1.3); GFR 51.4; GLUCOSE 96 mg/dL (70-99); POTASSIUM 3.7 mmol/L (3.5-5.1); SODIUM 142 mmol/L (136-145); TOTAL BILIRUBIN 0.8 mg/dL (0.2-1.0); TOTAL PROTEIN 6.8 g/dL (6.4-8.2)
[2021-01-02 07:00] LABS: VAL ACID 11 mcg/mL (50-100)
[2021-01-02] MEDS: DIVALPROEX 125 MG CAP.SPRINK PO SCH ×3 (08:15→21:00)
[2021-01-02] MEDS: DONEPEZIL HCL 10 MG TABLET PO SCH (08:15)
[2021-01-02] MEDS: ASPIRIN ENTERIC COATED 81 MG TABLET.DR. PO SCH (08:15)
[2021-01-02] MEDS: MEMANTINE 10 MG TABLET. PO SCH ×3 (08:16→21:00)
[2021-01-02] MEDS: amLODIPine BESYLATE 10 MG TABLET PO SCH (08:16)
[2021-01-02] MEDS: hydroCHLOROthiazide 12.5 MG CAPSULE PO SCH (08:16)
[2021-01-02] MEDS: LISINOPRIL 20 MG TABLET PO SCH (08:17)
--- NOTE | 2021-01-02 10:28 | NUR ---
EDMUNDO received voice message from [employer] indicating that Chilo had been authorized for 12/29/20 only, authorization number [id number]. EDMUNDO received additional voice message from Carmen at [employer] [facility] requesting review on Chilo which can be scheduled by calling [phone]. [phone]. EDMUNDO forwarded this information to EDMUNDO [facility] that will be following Chilo's care while hospitalized.
--- NOTE | 2021-01-02 12:48 | NUR ---
Nursing note: Pt in dining room at time of AM med pass and assessment. He wished to have his meds crushed in chocolate pudding, which he was compliant in eating and pt was cooperative with assessment. Pt denied having any pain/concerns. He has been tolerating full liquid diet. Spoke with speech therapy regarding pt's past episodes of vomiting. Speech referred concern back to Dr. Blanca as it is a "GI issue" with his vomiting. Dr. Blanca ordered to advance his diet to a regular diet to see how he tolerates it for the possibility of needing to have a scope. He is currently in the dining room for lunch. Will continue to monitor.
--- NOTE | 2021-01-02 13:05 | NUR ---
WEEKLY ACTIVITY THERAPY NOTE Date of Admission: 12/29/20 Date of AT Assessment: 01/01 Precipitating behaviors that initiated intake and admission:climbed out a window at his facility then climbed in the window of a house with a hammer, refusing cares, anxious, restless, slapped staff Goal aimed: increase socialization and engagement Initial Goal: Pt will participate in at least three individual or group Activity Therapy sessions per week. Weekly progress towards goal: goal evaluation begins next week Group participation level: 1 full Weekly highlights: danced to [place] Friday afternoon Behaviors observed: pleasant during group session, independently answered would you rather questions Plan: goal evaluation begins next week Beneficial adaptations:
[2021-01-02 15:54] VITALS: BP 111/79
[2021-01-02] MEDS: ATORVASTATIN CALCIUM 10 MG TABLET. PO SCH ×2 (20:28→21:00)
[2021-01-02] MEDS: hydrOXYzine HCL 25 MG TABLET PO SCH ×2 (20:28→21:00)
--- NOTE | 2021-01-02 21:53 | PDOC ---
Exam Note: Tereso Note: Please also refer to the separate dictated note~for this date of service dictated separately.~Patient seen individually. Discussed the patient with Nursing staff reviewed the chart.~Reviewed interim history and current functioning. Reviewed vital signs,~Labs/ Radiology~and current medications noted below. Continue current treatment with the changes noted in the dictated addendum note Assessment: Vital Signs/I&O: Vital Signs Date Time Temp Pulse Resp B/P (MAP) Pulse Ox O2 Delivery O2 Flow Rate FiO2 01/02/21 15:54 98.5 89 18 111/79 (90) 95 12/30/20 06:04 Room Air I & O 01/01/21 01/01/21 01/02/21 15:00 23:00 07:00 Intake Total 120 ml 600 ml Balance 120 ml 600 ml Labs: Laboratory Tests Test 01/02/21 06:24 White Blood Count 6.3 x10^3/uL (4.0-11.0) Red Blood Count 4.57 x10^6/uL (4.30-5.70) Hemoglobin 14.5 g/dL (13.0-17.5) Hematocrit 42.4 % (39.0-53.0) Mean Corpuscular Volume 93 fL (79-100) Mean Corpuscular Hemoglobin 32 pg (25-35) Mean Corpuscular Hemoglobin Concent 34 g/dL (31-37) Red Cell Distribution Width 12.7 % (11.5-14.5) Platelet Count 275 x10^3/uL (140-400) Neutrophils (%) (Auto) 49 % (31-73) Lymphocytes (%) (Auto) 33 % (24-48) Monocytes (%) (Auto) 14 % (0-9) H Eosinophils (%) (Auto) 3 % (0-3) Basophils (%) (Auto) 1 % (0-3) Neutrophils # (Auto) 3.1 x10^3uL (1.8-7.7) Lymphocytes # (Auto) 2.1 x10^3/uL (1.0-4.8) Monocytes # (Auto) 0.9 x10^3/uL (0.0-1.1) Eosinophils # (Auto) 0.2 x10^3/uL (0.0-0.7) Basophils # (Auto) 0.0 x10^3/uL (0.0-0.2) Sodium Level 142 mmol/L (136-145) Potassium Level 3.7 mmol/L (3.5-5.1) Chloride Level 107 mmol/L (98-107) Carbon Dioxide Level 25 mmol/L (21-32) Anion Gap 10 (6-14) Blood Urea Nitrogen 20 mg/dL (8-26) Creatinine 1.4 mg/dL (0.7-1.3) H Estimated GFR (Cockcroft-Gault) 51.4 BUN/Creatinine Ratio 14 (6-20) Glucose Level 96 mg/dL (70-99) Calcium Level 8.7 mg/dL (8.5-10.1) Total Bilirubin 0.8 mg/dL (0.2-1.0) Aspartate Amino Transferase (AST) 13 U/L (15-37) L Alanine Aminotransferase (ALT) 16 U/L (16-63) Alkaline Phosphatase 87 U/L (46-116) Ammonia 27 mcmol/L (11-34) Total Protein 6.8 g/dL (6.4-8.2) Albumin 3.4 g/dL (3.4-5.0) Albumin/Globulin Ratio 1.0 (1.0-1.7) Valproic Acid Level 11 mcg/mL (50-100) L Valproic Acid Last Dose Date 12/30/20 Valproic Acid Last Dose Time 1830 Current Medications: Meds: Laboratory Tests Test 01/02/21 06:24 White Blood Count 6.3 x10^3/uL Red Blood Count 4.57 x10^6/uL Hemoglobin 14.5 g/dL Hematocrit 42.4 % Mean Corpuscular Volume 93 fL Mean Corpuscular Hemoglobin 32 pg Mean Corpuscular Hemoglobin Concent 34 g/dL Red Cell Distribution Width 12.7 % Platelet Count 275 x10^3/uL Neutrophils (%) (Auto) 49 % Lymphocytes (%) (Auto) 33 % Monocytes (%) (Auto) 14 % Eosinophils (%) (Auto) 3 % Basophils (%) (Auto) 1 % Neutrophils # (Auto) 3.1 x10^3uL Lymphocytes # (Auto) 2.1 x10^3/uL Monocytes # (Auto) 0.9 x10^3/uL Eosinophils # (Auto) 0.2 x10^3/uL Basophils # (Auto) 0.0 x10^3/uL Sodium Level 142 mmol/L Potassium Level 3.7 mmol/L Chloride Level 107 mmol/L Carbon Dioxide Level 25 mmol/L Anion Gap 10 Blood Urea Nitrogen 20 mg/dL Creatinine 1.4 mg/dL Estimated GFR (Cockcroft-Gault) 51.4 BUN/Creatinine Ratio 14 Glucose Level 96 mg/dL Calcium Level 8.7 mg/dL Total Bilirubin 0.8 mg/dL Aspartate Amino Transf (AST/SGOT) 13 U/L Alanine Aminotransferase (ALT/SGPT) 16 U/L Alkaline Phosphatase 87 U/L Ammonia 27 mcmol/L Total Protein 6.8 g/dL Albumin 3.4 g/dL Albumin/Globulin Ratio 1.0 Valproic Acid (Depakene) Level 11 mcg/mL Valproic Acid Last Dose Date 12/30/20 Valproic Acid Last Dose Time 1830 Current Medications Medications (Trade) Dose Ordered Sig/Snow Route PRN Reason Start Time Stop Time Status Last Admin Dose Admin Acetaminophen (Tylenol) 650 mg PRN Q6HRS PRN PO MILD PAIN / TEMP > 100.3'F 12/29/20 11:15 Multi-Ingredient Ointment (Analgesic [place]) 1 dina PRN QID PRN TP MUSCLE PAIN 12/29/20 11:15 Al Hydroxide/Mg Hydroxide (Mylanta Plus Xs) 15 ml PRN AFTMEALHC PRN PO DYSPEPSIA 12/29/20 11:15 Magnesium Hydroxide (Milk Of Magnesia) 2,400 mg PRN QHS PRN PO CONSTIPATION 12/29/20 11:15 Amlodipine Besylate (Norvasc) 10 mg DAILY PO 12/30/20 09:00 01/02/21 08:16 Aspirin (Aspirin Enteric Coated) 81 mg DAILY PO 12/30/20 09:00 01/02/21 08:15 Atorvastatin Calcium (Lipitor) 10 mg QHS PO 12/29/20 21:00 01/02/21 20:28 Donepezil HCl (Aricept) 10 mg DAILY PO 12/30/20 09:00 01/02/21 08:15 Hydrochlorothiazide (Microzide) 12.5 mg DAILY PO 12/30/20 09:00 01/02/21 08:16 Hydroxyzine HCl (Atarax) 50 mg QHS PO 12/29/20 21:00 01/02/21 20:28 Memantine (Namenda) 10 mg BID PO 12/29/20 21:00 01/02/21 20:27 Lisinopril (Prinivil) 40 mg DAILY PO 12/30/20 09:00 01/02/21 08:17 Lorazepam (Ativan) 2 mg PRN Q8HRS PRN PO ANXIETY / AGITATION 12/29/20 12:15 Scopolamine (Transderm-Scop) 1 patch 1X ONCE TD 12/29/20 20:00 12/29/20 20:04 DC 12/29/20 20:29 Divalproex Sodium (Depakote Sprinkles) 250 mg 1X ONCE PO 12/30/20 19:00 12/30/20 19:01 DC 12/30/20 20:40 Divalproex Sodium (Depakote Sprinkles) 125 mg BID PO 12/31/20 09:00 01/02/21 11:55 DC 01/02/21 08:15 Divalproex Sodium (Depakote Sprinkles) 250 mg BID PO 01/02/21 21:00 01/02/21 20:28 Current Medications Medications (Trade) Dose Ordered Sig/Nsow Route PRN Reason Start Time Stop Time Status Last Admin Dose Admin Divalproex Sodium (Depakote Sprinkles) 250 mg BID PO 01/02/21 21:00 01/02/21 20:28 I have reviewed the current psychotropics carefully including drug interactions. Risk benefit ratio favors no change other than as noted in my dictated progress note. Diagnosis: Problems: (1) Dementia with behavioral disturbance (2) Major neurocognitive disorder (3) Impulse control disorder, unspecified (4) Anxiety disorder, unspecified (5) Dementia, vascular, with depression (6) Dementia, vascular, with delusions (7) Dementia in Alzheimer's disease with depression (8) Dementia in Alzheimer's disease with delusions ABRIL MARTINEZ MD Jan 02, 2021 21:53
--- NOTE | 2021-01-03 01:20 | NUR ---
Nursing Note The patient wandered the unit while awake. The patient was alert to name, date and location. The patient declined to take his medication this shift. The patient declined to answer more than simple replies to assessment questions. The patient is currently sleeping in his room.
[2021-01-03 05:58] VITALS: BP 110/67
--- NOTE | 2021-01-03 06:48 | PDOC ---
Exam Note: Tereso Note: This note is a late entry for 01/01/2021 covers elements not covered in my initial note. Subjective: The patient was seen individually in the evening of 01/01/2021 with Aissatou BOWLING, discussed and reviewed the chart. The patient slept 6 hours previous night. Previous evening he was restless, combative, getting into the room of other patients getting into bed of other female patients room. He has done well with thin liquids and we will take the Depakote Sprinkles. Review of Systems: Ambulation impaired in wheelchair. No CV, , pulmonary, eye, ENT system symptoms on review. Mental Status Exam: The patient is oriented to himself. Insight and judgment, recent and remote memory, attention and concentration, fund of knowledge is poor consistent with his diagnoses. Laboratory Data: Reviewed. Impression: Major neurocognitive disorder Alzheimer vascular with delusion, depression, behavioral disturbance. Anxiety disorder unspecified. Impulse control disorder unspecified. Plan: We will gradually increase the Depakote to reach therapeutic level for her labs level. Maintain rest of the psychotropics unchanged. Assessment: Vital Signs/I&O: Vital Signs Date Time Temp Pulse Resp B/P (MAP) Pulse Ox O2 Delivery O2 Flow Rate FiO2 01/03/21 05:58 97.4 64 16 110/67 (81) 95 Room Air I & O 01/02/21 01/02/21 01/03/21 15:00 23:00 07:00 Intake Total 960 ml 360 ml 300 ml Balance 960 ml 360 ml 300 ml Current Medications: Meds: Current Medications Medications (Trade) Dose Ordered Sig/Snow Route PRN Reason Start Time Stop Time Status Last Admin Dose Admin Acetaminophen (Tylenol) 650 mg PRN Q6HRS PRN PO MILD PAIN / TEMP > 100.3'F 12/29/20 11:15 Multi-Ingredient Ointment (Analgesic [place]) 1 dina PRN QID PRN TP MUSCLE PAIN 12/29/20 11:15 Al Hydroxide/Mg Hydroxide (Mylanta Plus Xs) 15 ml PRN AFTMEALHC PRN PO DYSPEPSIA 12/29/20 11:15 Magnesium Hydroxide (Milk Of Magnesia) 2,400 mg PRN QHS PRN PO CONSTIPATION 12/29/20 11:15 Amlodipine Besylate (Norvasc) 10 mg DAILY PO 12/30/20 09:00 01/02/21 08:16 Aspirin (Aspirin Enteric Coated) 81 mg DAILY PO 12/30/20 09:00 01/02/21 08:15 Atorvastatin Calcium (Lipitor) 10 mg QHS PO 12/29/20 21:00 01/01/21 20:03 Donepezil HCl (Aricept) 10 mg DAILY PO 12/30/20 09:00 01/02/21 08:15 Hydrochlorothiazide (Microzide) 12.5 mg DAILY PO 12/30/20 09:00 01/02/21 08:16 Hydroxyzine HCl (Atarax) 50 mg QHS PO 12/29/20 21:00 01/01/21 20:04 Memantine (Namenda) 10 mg BID PO 12/29/20 21:00 01/02/21 08:16 Lisinopril (Prinivil) 40 mg DAILY PO 12/30/20 09:00 01/02/21 08:17 Lorazepam (Ativan) 2 mg PRN Q8HRS PRN PO ANXIETY / AGITATION 12/29/20 12:15 Scopolamine (Transderm-Scop) 1 patch 1X ONCE TD 12/29/20 20:00 12/29/20 20:04 DC 12/29/20 20:29 Divalproex Sodium (Depakote Sprinkles) 250 mg 1X ONCE PO 12/30/20 19:00 12/30/20 19:01 DC 12/30/20 20:40 Divalproex Sodium (Depakote Sprinkles) 125 mg BID PO 12/31/20 09:00 01/02/21 11:55 DC 01/02/21 08:15 Divalproex Sodium (Depakote Sprinkles) 250 mg BID PO 01/02/21 21:00 I have reviewed the current psychotropics carefully including drug interactions. Risk benefit ratio favors no change other than as noted in my dictated progress note. Diagnosis: Problems: (1) Dementia with behavioral disturbance (2) Major neurocognitive disorder (3) Impulse control disorder, unspecified (4) Anxiety disorder, unspecified (5) Dementia, vascular, with depression (6) Dementia, vascular, with delusions (7) Dementia in Alzheimer's disease with depression (8) Dementia in Alzheimer's disease with delusions ABRIL MARTINEZ MD Jan 03, 2021 06:48
--- NOTE | 2021-01-03 07:24 | PDOC ---
Exam Note: Tereso Note: This note is a late entry for 01/02/2021 covers elements not covered in my initial note. Subjective: The patient was reviewed in the morning of 01/02/2021 for a treatment team meeting with Kori Centeno, Monet Singletary and Demi (public health social worker), Leeanne, activity therapy and Veena BOWLING, discussed and reviewed the chart. The patient slept 6-3/4 hours previous night. Appetite is poor. He has had some vomiting. He may need an endoscopy and is on a full liquid diet initially but later Dr. Blanca decided he can have medications crushed. Valproic acid level is 11 and we will increase the Depakote Sprinkle from 125 mg b.i.d. to 250 mg b.i.d. Check CBC, CMP, valproic acid level in 3 days. Review of Systems: Ambulation impaired in wheelchair. No CV, , pulmonary, eye, ENT system symptoms on review. Mental Status Exam: The patient is oriented to himself. Insight and judgment, recent and remote memory, attention and concentration, fund of knowledge is poor consistent with his diagnoses. Laboratory Data: Reviewed. Impression: Major neurocognitive disorder Alzheimer vascular with delusion, depression, behavioral disturbance. Anxiety disorder unspecified. Impulse control disorder unspecified. Plan: No change from initial note. We will increase Depakote as above. Assessment: Vital Signs/I&O: Vital Signs Date Time Temp Pulse Resp B/P (MAP) Pulse Ox O2 Delivery O2 Flow Rate FiO2 01/03/21 05:58 97.4 64 16 110/67 (81) 95 Room Air I & O 01/02/21 01/02/21 01/03/21 15:00 23:00 07:00 Intake Total 960 ml 360 ml 300 ml Balance 960 ml 360 ml 300 ml Current Medications: Meds: Current Medications Medications (Trade) Dose Ordered Sig/Snow Route PRN Reason Start Time Stop Time Status Last Admin Dose Admin Acetaminophen (Tylenol) 650 mg PRN Q6HRS PRN PO MILD PAIN / TEMP > 100.3'F 12/29/20 11:15 Multi-Ingredient Ointment (Analgesic [place]) 1 dina PRN QID PRN TP MUSCLE PAIN 12/29/20 11:15 Al Hydroxide/Mg Hydroxide (Mylanta Plus Xs) 15 ml PRN AFTMEALHC PRN PO DYSPEPSIA 12/29/20 11:15 Magnesium Hydroxide (Milk Of Magnesia) 2,400 mg PRN QHS PRN PO CONSTIPATION 12/29/20 11:15 Amlodipine Besylate (Norvasc) 10 mg DAILY PO 12/30/20 09:00 01/02/21 08:16 Aspirin (Aspirin Enteric Coated) 81 mg DAILY PO 12/30/20 09:00 01/02/21 08:15 Atorvastatin Calcium (Lipitor) 10 mg QHS PO 12/29/20 21:00 01/01/21 20:03 Donepezil HCl (Aricept) 10 mg DAILY PO 12/30/20 09:00 01/02/21 08:15 Hydrochlorothiazide (Microzide) 12.5 mg DAILY PO 12/30/20 09:00 01/02/21 08:16 Hydroxyzine HCl (Atarax) 50 mg QHS PO 12/29/20 21:00 01/01/21 20:04 Memantine (Namenda) 10 mg BID PO 12/29/20 21:00 01/02/21 08:16 Lisinopril (Prinivil) 40 mg DAILY PO 12/30/20 09:00 01/02/21 08:17 Lorazepam (Ativan) 2 mg PRN Q8HRS PRN PO ANXIETY / AGITATION 12/29/20 12:15 Scopolamine (Transderm-Scop) 1 patch 1X ONCE TD 12/29/20 20:00 12/29/20 20:04 DC 12/29/20 20:29 Divalproex Sodium (Depakote Sprinkles) 250 mg 1X ONCE PO 12/30/20 19:00 12/30/20 19:01 DC 12/30/20 20:40 Divalproex Sodium (Depakote Sprinkles) 125 mg BID PO 12/31/20 09:00 01/02/21 11:55 DC 01/02/21 08:15 Divalproex Sodium (Depakote Sprinkles) 250 mg BID PO 01/02/21 21:00 I have reviewed the current psychotropics carefully including drug interactions. Risk benefit ratio favors no change other than as noted in my dictated progress note. Diagnosis: Problems: (1) Dementia with behavioral disturbance (2) Major neurocognitive disorder (3) Impulse control disorder, unspecified (4) Anxiety disorder, unspecified (5) Dementia, vascular, with depression (6) Dementia, vascular, with delusions (7) Dementia in Alzheimer's disease with depression (8) Dementia in Alzheimer's disease with delusions ABRIL MARTINEZ MD Jan 03, 2021 07:24
[2021-01-03] MEDS: LISINOPRIL 20 MG TABLET PO SCH (08:18)
[2021-01-03] MEDS: MEMANTINE 10 MG TABLET. PO SCH ×3 (08:18→21:00)
[2021-01-03] MEDS: DIVALPROEX 125 MG CAP.SPRINK PO SCH ×3 (08:18→21:00)
[2021-01-03] MEDS: hydroCHLOROthiazide 12.5 MG CAPSULE PO SCH (08:18)
[2021-01-03] MEDS: ASPIRIN ENTERIC COATED 81 MG TABLET.DR. PO SCH (08:18)
[2021-01-03] MEDS: amLODIPine BESYLATE 10 MG TABLET PO SCH (08:19)
[2021-01-03] MEDS: DONEPEZIL HCL 10 MG TABLET PO SCH (08:19)
--- NOTE | 2021-01-03 10:11 | NUR ---
Nursing note: Pt in dining room at time of AM med pass and assessment. He is pleasant, compliant with meds crushed in pudding, and cooperative with assessment. Pt denies having any pain/nausea at time of assessment. He is currently sitting in the day room watching TV. Will continue to monitor.
[2021-01-03 15:29] VITALS: BP 139/82
--- NOTE | 2021-01-03 16:40 | NUR ---
SW contacted pt to give her an update on pt and his behaviors. Pt reports not knowing that pt had been experiencing vomitting in which SW went over those notes and noted that in the last 48 hours pt has not had any issues. Pt is medication compliant with his day meds; however, it appears that pt is refusing his night meds (Lipitor and Atarax). Pt just wants to make sure that his behaviors have subsided prior to discharging back to [facility]. SW will contact pt after completion of the insurance review.
[2021-01-03] MEDS: risperiDONE 0.25 MG TABLET. PO SCH (18:02)
[2021-01-03] MEDS: hydrOXYzine HCL 25 MG TABLET PO SCH ×2 (19:26→21:00)
[2021-01-03] MEDS: ATORVASTATIN CALCIUM 10 MG TABLET. PO SCH ×2 (19:27→21:00)
--- NOTE | 2021-01-03 22:01 | PDOC ---
Exam Note: Tereso Note: Please also refer to the separate dictated note~for this date of service dictated separately.~Patient seen individually. Discussed the patient with Nursing staff reviewed the chart.~Reviewed interim history and current functioning. Reviewed vital signs,~Labs/ Radiology~and current medications noted below. Continue current treatment with the changes noted in the dictated addendum note Assessment: Vital Signs/I&O: Vital Signs Date Time Temp Pulse Resp B/P (MAP) Pulse Ox O2 Delivery O2 Flow Rate FiO2 01/03/21 15:29 98.4 81 18 139/82 (101) 7 01/03/21 05:58 Room Air I & O 01/02/21 01/02/21 01/03/21 15:00 23:00 07:00 Intake Total 960 ml 360 ml 300 ml Balance 960 ml 360 ml 300 ml Current Medications: Meds: Current Medications Medications (Trade) Dose Ordered Sig/Snow Route PRN Reason Start Time Stop Time Status Last Admin Dose Admin Acetaminophen (Tylenol) 650 mg PRN Q6HRS PRN PO MILD PAIN / TEMP > 100.3'F 12/29/20 11:15 Multi-Ingredient Ointment (Analgesic [place]) 1 dina PRN QID PRN TP MUSCLE PAIN 12/29/20 11:15 Al Hydroxide/Mg Hydroxide (Mylanta Plus Xs) 15 ml PRN AFTMEALHC PRN PO DYSPEPSIA 12/29/20 11:15 Magnesium Hydroxide (Milk Of Magnesia) 2,400 mg PRN QHS PRN PO CONSTIPATION 12/29/20 11:15 Amlodipine Besylate (Norvasc) 10 mg DAILY PO 12/30/20 09:00 01/03/21 08:19 Aspirin (Aspirin Enteric Coated) 81 mg DAILY PO 12/30/20 09:00 01/03/21 08:18 Atorvastatin Calcium (Lipitor) 10 mg QHS PO 12/29/20 21:00 01/03/21 19:27 Donepezil HCl (Aricept) 10 mg DAILY PO 12/30/20 09:00 01/03/21 08:19 Hydrochlorothiazide (Microzide) 12.5 mg DAILY PO 12/30/20 09:00 01/03/21 08:18 Hydroxyzine HCl (Atarax) 50 mg QHS PO 12/29/20 21:00 01/03/21 19:26 Memantine (Namenda) 10 mg BID PO 12/29/20 21:00 01/03/21 19:27 Lisinopril (Prinivil) 40 mg DAILY PO 12/30/20 09:00 01/03/21 08:18 Lorazepam (Ativan) 2 mg PRN Q8HRS PRN PO ANXIETY / AGITATION 12/29/20 12:15 Scopolamine (Transderm-Scop) 1 patch 1X ONCE TD 12/29/20 20:00 12/29/20 20:04 DC 12/29/20 20:29 Divalproex Sodium (Depakote Sprinkles) 250 mg 1X ONCE PO 12/30/20 19:00 12/30/20 19:01 DC 12/30/20 20:40 Divalproex Sodium (Depakote Sprinkles) 125 mg BID PO 12/31/20 09:00 01/02/21 11:55 DC 01/02/21 08:15 Divalproex Sodium (Depakote Sprinkles) 250 mg BID PO 01/02/21 21:00 01/03/21 19:27 Risperidone (RisperDAL) 0.25 mg 1500 PO 01/03/21 18:00 01/03/21 18:02 Current Medications Medications (Trade) Dose Ordered Sig/Snow Route PRN Reason Start Time Stop Time Status Last Admin Dose Admin Risperidone (RisperDAL) 0.25 mg 1500 PO 01/03/21 18:00 01/03/21 18:02 I have reviewed the current psychotropics carefully including drug interactions. Risk benefit ratio favors no change other than as noted in my dictated progress note. Diagnosis: Problems: (1) Dementia with behavioral disturbance (2) Major neurocognitive disorder (3) Impulse control disorder, unspecified (4) Anxiety disorder, unspecified (5) Dementia, vascular, with depression (6) Dementia, vascular, with delusions (7) Dementia in Alzheimer's disease with depression (8) Dementia in Alzheimer's disease with delusions ABRIL MARTINEZ MD Jan 03, 2021 22:01
--- NOTE | 2021-01-03 22:45 | NUR ---
Pt refused to take HS pills after multiple attempts. Offered whole and then crushed. Pt with flat affect and not interactive. Allowed assessment, but would not make eye contact or respond to orientation questions. Pt now resting in bed with eyes closed.
[2021-01-04 06:06] VITALS: BP 123/82
[2021-01-04] MEDS: amLODIPine BESYLATE 10 MG TABLET PO SCH (08:41)
[2021-01-04] MEDS: DIVALPROEX 125 MG CAP.SPRINK PO SCH ×3 (08:41→21:00)
[2021-01-04] MEDS: MEMANTINE 10 MG TABLET. PO SCH ×3 (08:41→21:00)
[2021-01-04] MEDS: ASPIRIN ENTERIC COATED 81 MG TABLET.DR. PO SCH (08:41)
[2021-01-04] MEDS: hydroCHLOROthiazide 12.5 MG CAPSULE PO SCH (08:41)
[2021-01-04] MEDS: LISINOPRIL 20 MG TABLET PO SCH (08:41)
[2021-01-04] MEDS: DONEPEZIL HCL 10 MG TABLET PO SCH (08:41)
--- NOTE | 2021-01-04 09:20 | PDOC ---
Exam Note: Tereso Note: This note is a late entry for 01/03/2021 covers elements not covered in my initial note. Subjective: The patient was seen individually in the evening of 01/03/2021 with Matilde BOWLING, discussed and reviewed the chart. The patient slept 6-1/4 hours previous night. He was quite resistive to his medications previous night, paranoid, irritable, pacing the hallway. He is more compliant with taking his medications on the day of 01/03. Towards the evening he gets paranoid, suspicious, but slightly less impulsive since we have initiated the Depakote which has been increased to 250 mg b.i.d. Repeat labs level on the higher dosage are to be completed on 01/05. I walked around the unit with him as he kept pacing, unable to stand still for any length of time, paranoid, suspicious, scowling facial expression. Review of Systems: Ambulation impaired in wheelchair. No CV, , pulmonary, eye, ENT system symptoms on review. Mental Status Exam: The patient is oriented to himself. Insight and judgment, recent and remote memory, attention and concentration, fund of knowledge is poor consistent with his diagnoses. Laboratory Data: Reviewed. Impression: Major neurocognitive disorder Alzheimer vascular with delusion, depression, behavioral disturbance. Anxiety disorder unspecified. Impulse control disorder unspecified. Plan: No change from initial note. Continue Depakote 250 mg b.i.d. Check CBC, CMP, and valproic acid level as noted above. Start Risperdal 0.25 mg at 3 p.m. for his paranoia worsening in the evening. Adjust further as clinically indicated. Assessment: Vital Signs/I&O: Vital Signs Date Time Temp Pulse Resp B/P (MAP) Pulse Ox O2 Delivery O2 Flow Rate FiO2 01/04/21 08:41 71 123/82 01/04/21 06:06 97.5 16 94 Room Air I & O 01/03/21 01/03/21 01/04/21 15:00 23:00 07:00 Intake Total 720 ml 360 ml Balance 720 ml 360 ml Current Medications: Meds: Current Medications Medications (Trade) Dose Ordered Sig/Snow Route PRN Reason Start Time Stop Time Status Last Admin Dose Admin Acetaminophen (Tylenol) 650 mg PRN Q6HRS PRN PO MILD PAIN / TEMP > 100.3'F 12/29/20 11:15 Multi-Ingredient Ointment (Analgesic [place]) 1 dina PRN QID PRN TP MUSCLE PAIN 12/29/20 11:15 Al Hydroxide/Mg Hydroxide (Mylanta Plus Xs) 15 ml PRN AFTMEALHC PRN PO DYSPEPSIA 12/29/20 11:15 Magnesium Hydroxide (Milk Of Magnesia) 2,400 mg PRN QHS PRN PO CONSTIPATION 12/29/20 11:15 Amlodipine Besylate (Norvasc) 10 mg DAILY PO 12/30/20 09:00 01/04/21 08:41 Aspirin (Aspirin Enteric Coated) 81 mg DAILY PO 12/30/20 09:00 01/04/21 08:41 Atorvastatin Calcium (Lipitor) 10 mg QHS PO 12/29/20 21:00 01/01/21 20:03 Donepezil HCl (Aricept) 10 mg DAILY PO 12/30/20 09:00 01/04/21 08:41 Hydrochlorothiazide (Microzide) 12.5 mg DAILY PO 12/30/20 09:00 01/04/21 08:41 Hydroxyzine HCl (Atarax) 50 mg QHS PO 12/29/20 21:00 01/01/21 20:04 Memantine (Namenda) 10 mg BID PO 12/29/20 21:00 01/04/21 08:41 Lisinopril (Prinivil) 40 mg DAILY PO 12/30/20 09:00 01/04/21 08:41 Lorazepam (Ativan) 2 mg PRN Q8HRS PRN PO ANXIETY / AGITATION 12/29/20 12:15 Scopolamine (Transderm-Scop) 1 patch 1X ONCE TD 12/29/20 20:00 12/29/20 20:04 DC 12/29/20 20:29 Divalproex Sodium (Depakote Sprinkles) 250 mg 1X ONCE PO 12/30/20 19:00 12/30/20 19:01 DC 12/30/20 20:40 Divalproex Sodium (Depakote Sprinkles) 125 mg BID PO 12/31/20 09:00 01/02/21 11:55 DC 01/02/21 08:15 Divalproex Sodium (Depakote Sprinkles) 250 mg BID PO 01/02/21 21:00 01/04/21 08:41 Risperidone (RisperDAL) 0.25 mg 1500 PO 01/03/21 18:00 01/03/21 18:02 Current Medications Medications (Trade) Dose Ordered Sig/Snow Route PRN Reason Start Time Stop Time Status Last Admin Dose Admin Risperidone (RisperDAL) 0.25 mg 1500 PO 01/03/21 18:00 01/03/21 18:02 I have reviewed the current psychotropics carefully including drug interactions. Risk benefit ratio favors no change other than as noted in my dictated progress note. Diagnosis: Problems: (1) Dementia with behavioral disturbance (2) Major neurocognitive disorder (3) Impulse control disorder, unspecified (4) Anxiety disorder, unspecified (5) Dementia, vascular, with depression (6) Dementia, vascular, with delusions (7) Dementia in Alzheimer's disease with depression (8) Dementia in Alzheimer's disease with delusions ABRIL MARTINEZ MD Jan 04, 2021 09:20
--- NOTE | 2021-01-04 12:13 | NUR ---
EDMUNDO completed insurance review. Pt has been approved through the weekend with a update or discharge for Monday 01/08.
--- NOTE | 2021-01-04 12:20 | NUR ---
EDMUNDO contacted Melissa, ED at [facility], to update her on pt insurance updates and to let her know discharge for pt would be Friday. Melissa has requested notes on pt since his admit. EDMUNDO will follow up with Melissa on Friday AM re: potato picker time and transport.
--- NOTE | 2021-01-04 13:00 | NUR ---
EDMUNDO contacted pt , Sarahy, and updated her on the insurance approval for Friday. SW gave pt an update on how pt is doing today and can update her for sure on Friday with the final decision on discharge.
--- NOTE | 2021-01-04 13:13 | NUR ---
Nursing note: Pt in his room at time of AM med pass and assessment. He is slightly resistive with his meds crushed in pudding, only taking small bites of the pudding, but did eat the entire spoonful. He has been laying in bed for most of the shift, but occasionally will get up and walk around the unit. During lunch, pt would leave the dining room for a short time and then come back in to eat some more. He is currently resting quietly in his room. Will continue to monitor.
[2021-01-04] MEDS: risperiDONE 0.25 MG TABLET. PO SCH (14:37)
[2021-01-04 15:53] VITALS: BP 108/74
[2021-01-04] MEDS: ATORVASTATIN CALCIUM 10 MG TABLET. PO SCH ×2 (20:12→21:00)
[2021-01-04] MEDS: hydrOXYzine HCL 25 MG TABLET PO SCH (20:13)
--- NOTE | 2021-01-04 21:53 | PDOC ---
Exam Note: Tereso Note: Please also refer to the separate dictated note~for this date of service dictated separately.~Patient seen individually. Discussed the patient with Nursing staff reviewed the chart.~Reviewed interim history and current functioning. Reviewed vital signs,~Labs/ Radiology~and current medications noted below. Continue current treatment with the changes noted in the dictated addendum note Assessment: Vital Signs/I&O: Vital Signs Date Time Temp Pulse Resp B/P (MAP) Pulse Ox O2 Delivery O2 Flow Rate FiO2 01/04/21 15:53 97.8 87 16 108/74 (85) 96 01/04/21 06:06 Room Air I & O 01/03/21 01/03/21 01/04/21 14:59 22:59 06:59 Intake Total 720 ml 360 ml Balance 720 ml 360 ml Labs: Laboratory Tests Test 01/04/21 09:00 SARS-CoV-2 (PCR) Negative (NEGATIVE) Current Medications: Meds: Laboratory Tests Test 01/04/21 09:00 Coronavirus (COVID-19)(PCR) Negative Current Medications Medications (Trade) Dose Ordered Sig/Snow Route PRN Reason Start Time Stop Time Status Last Admin Dose Admin Acetaminophen (Tylenol) 650 mg PRN Q6HRS PRN PO MILD PAIN / TEMP > 100.3'F 12/29/20 11:15 Multi-Ingredient Ointment (Analgesic [place]) 1 dina PRN QID PRN TP MUSCLE PAIN 12/29/20 11:15 Al Hydroxide/Mg Hydroxide (Mylanta Plus Xs) 15 ml PRN AFTMEALHC PRN PO DYSPEPSIA 12/29/20 11:15 Magnesium Hydroxide (Milk Of Magnesia) 2,400 mg PRN QHS PRN PO CONSTIPATION 12/29/20 11:15 Amlodipine Besylate (Norvasc) 10 mg DAILY PO 12/30/20 09:00 01/04/21 08:41 Aspirin (Aspirin Enteric Coated) 81 mg DAILY PO 12/30/20 09:00 01/04/21 08:41 Atorvastatin Calcium (Lipitor) 10 mg QHS PO 12/29/20 21:00 01/04/21 20:12 Donepezil HCl (Aricept) 10 mg DAILY PO 12/30/20 09:00 01/04/21 08:41 Hydrochlorothiazide (Microzide) 12.5 mg DAILY PO 12/30/20 09:00 01/04/21 08:41 Hydroxyzine HCl (Atarax) 50 mg QHS PO 12/29/20 21:00 01/04/21 20:13 Memantine (Namenda) 10 mg BID PO 12/29/20 21:00 01/04/21 20:12 Lisinopril (Prinivil) 40 mg DAILY PO 12/30/20 09:00 01/04/21 08:41 Lorazepam (Ativan) 2 mg PRN Q8HRS PRN PO ANXIETY / AGITATION 12/29/20 12:15 Scopolamine (Transderm-Scop) 1 patch 1X ONCE TD 12/29/20 20:00 12/29/20 20:04 DC 12/29/20 20:29 Divalproex Sodium (Depakote Sprinkles) 250 mg 1X ONCE PO 12/30/20 19:00 12/30/20 19:01 DC 12/30/20 20:40 Divalproex Sodium (Depakote Sprinkles) 125 mg BID PO 12/31/20 09:00 01/02/21 11:55 DC 01/02/21 08:15 Divalproex Sodium (Depakote Sprinkles) 250 mg BID PO 01/02/21 21:00 01/04/21 20:12 Risperidone (RisperDAL) 0.25 mg 1500 PO 01/03/21 18:00 01/04/21 14:37 I have reviewed the current psychotropics carefully including drug interactions. Risk benefit ratio favors no change other than as noted in my dictated progress note. Diagnosis: Problems: (1) Dementia with behavioral disturbance (2) Major neurocognitive disorder (3) Impulse control disorder, unspecified (4) Anxiety disorder, unspecified (5) Dementia, vascular, with depression (6) Dementia, vascular, with delusions (7) Dementia in Alzheimer's disease with depression (8) Dementia in Alzheimer's disease with delusions ABRIL MARTINEZ MD Jan 04, 2021 21:53
--- NOTE | 2021-01-04 23:26 | NUR ---
Brandin pt has been walking on unit or sitting in the day room. His gait is steady tonight he is able to find his room and he is not laying on floor as he did at times last week. At HS med pass he refused to take any meds. Dr Smith was informed. Pt was oriented x4 and has been sleeping.
[2021-01-05 05:58] VITALS: BP 124/85
[2021-01-05] MEDS: DONEPEZIL HCL 10 MG TABLET PO SCH (08:11)
[2021-01-05] MEDS: hydroCHLOROthiazide 12.5 MG CAPSULE PO SCH (08:12)
[2021-01-05] MEDS: DIVALPROEX 125 MG CAP.SPRINK PO SCH ×2 (08:12→20:31)
[2021-01-05] MEDS: LISINOPRIL 20 MG TABLET PO SCH (08:12)
[2021-01-05] MEDS: ASPIRIN ENTERIC COATED 81 MG TABLET.DR. PO SCH (08:12)
[2021-01-05] MEDS: MEMANTINE 10 MG TABLET. PO SCH ×2 (08:12→20:31)
[2021-01-05] MEDS: amLODIPine BESYLATE 10 MG TABLET PO SCH (08:12)
--- NOTE | 2021-01-05 09:20 | NUR ---
Pt A&O to name, , and place only. He is compliant with medications taken whole. He denies N/V/pain this morning, absent of SI/HI/VH/AH/delusions. He remains delayed in conversational/social abilities. Often staring in silence before replying to questions. He is able to make his needs known and has no concerns at this time. Plan of care continues, will pass to next shift.
--- NOTE | 2021-01-05 09:42 | PDOC ---
Exam Note: Tereso Note: This note is a late entry for 01/04/2021 covers elements not covered in my initial note. Subjective: The patient was seen individually in the evening of 01/04/2021 with Veena BOWLING, discussed and reviewed the chart. The patient slept 6 hours previous night. He refused his medications last night and again this evening. Evening nursing staff Riccardo felt the patient was more oriented than before and this does seem to change advisor time. Review of Systems: Ambulation impaired in wheelchair. No CV, , pulmonary, eye, ENT system symptoms on review. Mental Status Exam: The patient is oriented to himself. Insight and judgment, recent memory is impaired. Language function intact. Mood and affect somewhat withdrawn, anxious, paranoid, distractible. Laboratory Data: Reviewed. Impression: Major neurocognitive disorder Alzheimer vascular with delusion, depression, behavioral disturbance. Anxiety disorder unspecified. Impulse control disorder unspecified. Plan: No change from initial note. Adjust Depakote to reach therapeutic level. We started Risperdal. Assessment: Vital Signs/I&O: Vital Signs Date Time Temp Pulse Resp B/P (MAP) Pulse Ox O2 Delivery O2 Flow Rate FiO2 01/05/21 08:12 111 124/85 01/05/21 05:58 98.0 16 100 01/04/21 06:06 Room Air I & O 01/04/21 01/04/21 01/05/21 15:00 23:00 07:00 Intake Total 600 ml 360 ml Balance 600 ml 360 ml Current Medications: Meds: Current Medications Medications (Trade) Dose Ordered Sig/Snow Route PRN Reason Start Time Stop Time Status Last Admin Dose Admin Acetaminophen (Tylenol) 650 mg PRN Q6HRS PRN PO MILD PAIN / TEMP > 100.3'F 12/29/20 11:15 Multi-Ingredient Ointment (Analgesic [place]) 1 dina PRN QID PRN TP MUSCLE PAIN 12/29/20 11:15 Al Hydroxide/Mg Hydroxide (Mylanta Plus Xs) 15 ml PRN AFTMEALHC PRN PO DYSPEPSIA 12/29/20 11:15 Magnesium Hydroxide (Milk Of Magnesia) 2,400 mg PRN QHS PRN PO CONSTIPATION 12/29/20 11:15 Amlodipine Besylate (Norvasc) 10 mg DAILY PO 12/30/20 09:00 01/05/21 08:12 Aspirin (Aspirin Enteric Coated) 81 mg DAILY PO 12/30/20 09:00 01/05/21 08:12 Atorvastatin Calcium (Lipitor) 10 mg QHS PO 12/29/20 21:00 01/01/21 20:03 Donepezil HCl (Aricept) 10 mg DAILY PO 12/30/20 09:00 01/05/21 08:11 Hydrochlorothiazide (Microzide) 12.5 mg DAILY PO 12/30/20 09:00 01/05/21 08:12 Hydroxyzine HCl (Atarax) 50 mg QHS PO 12/29/20 21:00 01/04/21 20:13 Memantine (Namenda) 10 mg BID PO 12/29/20 21:00 01/05/21 08:12 Lisinopril (Prinivil) 40 mg DAILY PO 12/30/20 09:00 01/05/21 08:12 Lorazepam (Ativan) 2 mg PRN Q8HRS PRN PO ANXIETY / AGITATION 12/29/20 12:15 Scopolamine (Transderm-Scop) 1 patch 1X ONCE TD 12/29/20 20:00 12/29/20 20:04 DC 12/29/20 20:29 Divalproex Sodium (Depakote Sprinkles) 250 mg 1X ONCE PO 12/30/20 19:00 12/30/20 19:01 DC 12/30/20 20:40 Divalproex Sodium (Depakote Sprinkles) 125 mg BID PO 12/31/20 09:00 01/02/21 11:55 DC 01/02/21 08:15 Divalproex Sodium (Depakote Sprinkles) 250 mg BID PO 01/02/21 21:00 01/05/21 08:12 Risperidone (RisperDAL) 0.25 mg 1500 PO 01/03/21 18:00 01/04/21 14:37 I have reviewed the current psychotropics carefully including drug interactions. Risk benefit ratio favors no change other than as noted in my dictated progress note. Diagnosis: Problems: (1) Dementia with behavioral disturbance (2) Major neurocognitive disorder (3) Impulse control disorder, unspecified (4) Anxiety disorder, unspecified (5) Dementia, vascular, with depression (6) Dementia, vascular, with delusions (7) Dementia in Alzheimer's disease with depression (8) Dementia in Alzheimer's disease with delusions ABRIL MARTINEZ MD Jan 05, 2021 09:42
[2021-01-05] MEDS: risperiDONE 0.25 MG TABLET. PO SCH (13:53)
[2021-01-05 16:25] VITALS: BP 115/73
[2021-01-05] MEDS: ATORVASTATIN CALCIUM 10 MG TABLET. PO SCH (20:32)
[2021-01-05] MEDS: hydrOXYzine HCL 25 MG TABLET PO SCH (20:32)
--- NOTE | 2021-01-05 21:58 | PDOC ---
Exam Note: Tereso Note: Please also refer to the separate dictated note~for this date of service dictated separately.~Patient seen individually. Discussed the patient with Nursing staff reviewed the chart.~Reviewed interim history and current functioning. Reviewed vital signs,~Labs/ Radiology~and current medications noted below. Continue current treatment with the changes noted in the dictated addendum note Assessment: Vital Signs/I&O: Vital Signs Date Time Temp Pulse Resp B/P (MAP) Pulse Ox O2 Delivery O2 Flow Rate FiO2 01/05/21 16:25 98.2 87 20 115/73 (87) 94 01/04/21 06:06 Room Air I & O 01/04/21 01/04/21 01/05/21 15:00 23:00 07:00 Intake Total 600 ml 360 ml Balance 600 ml 360 ml Current Medications: Meds: Current Medications Medications (Trade) Dose Ordered Sig/Snow Route PRN Reason Start Time Stop Time Status Last Admin Dose Admin Acetaminophen (Tylenol) 650 mg PRN Q6HRS PRN PO MILD PAIN / TEMP > 100.3'F 12/29/20 11:15 Multi-Ingredient Ointment (Analgesic [place]) 1 dina PRN QID PRN TP MUSCLE PAIN 12/29/20 11:15 Al Hydroxide/Mg Hydroxide (Mylanta Plus Xs) 15 ml PRN AFTMEALHC PRN PO DYSPEPSIA 12/29/20 11:15 Magnesium Hydroxide (Milk Of Magnesia) 2,400 mg PRN QHS PRN PO CONSTIPATION 12/29/20 11:15 Amlodipine Besylate (Norvasc) 10 mg DAILY PO 12/30/20 09:00 01/05/21 08:12 Aspirin (Aspirin Enteric Coated) 81 mg DAILY PO 12/30/20 09:00 01/05/21 08:12 Atorvastatin Calcium (Lipitor) 10 mg QHS PO 12/29/20 21:00 01/05/21 20:32 Donepezil HCl (Aricept) 10 mg DAILY PO 12/30/20 09:00 01/05/21 08:11 Hydrochlorothiazide (Microzide) 12.5 mg DAILY PO 12/30/20 09:00 01/05/21 08:12 Hydroxyzine HCl (Atarax) 50 mg QHS PO 12/29/20 21:00 01/05/21 20:32 Memantine (Namenda) 10 mg BID PO 12/29/20 21:00 01/05/21 20:31 Lisinopril (Prinivil) 40 mg DAILY PO 12/30/20 09:00 01/05/21 08:12 Lorazepam (Ativan) 2 mg PRN Q8HRS PRN PO ANXIETY / AGITATION 12/29/20 12:15 Scopolamine (Transderm-Scop) 1 patch 1X ONCE TD 12/29/20 20:00 12/29/20 20:04 DC 12/29/20 20:29 Divalproex Sodium (Depakote Sprinkles) 250 mg 1X ONCE PO 12/30/20 19:00 12/30/20 19:01 DC 12/30/20 20:40 Divalproex Sodium (Depakote Sprinkles) 125 mg BID PO 12/31/20 09:00 01/02/21 11:55 DC 01/02/21 08:15 Divalproex Sodium (Depakote Sprinkles) 250 mg BID PO 01/02/21 21:00 01/05/21 20:31 Risperidone (RisperDAL) 0.25 mg 1500 PO 01/03/21 18:00 01/05/21 13:53 I have reviewed the current psychotropics carefully including drug interactions. Risk benefit ratio favors no change other than as noted in my dictated progress note. Diagnosis: Problems: (1) Dementia with behavioral disturbance (2) Major neurocognitive disorder (3) Impulse control disorder, unspecified (4) Anxiety disorder, unspecified (5) Dementia, vascular, with depression (6) Dementia, vascular, with delusions (7) Dementia in Alzheimer's disease with depression (8) Dementia in Alzheimer's disease with delusions ABRIL MARTINEZ MD Jan 05, 2021 21:58
--- NOTE | 2021-01-05 23:12 | NUR ---
This evening at med pass pt refused meds saying he did not need them and denies having had any behaviors that resulted in him being admitted here. Later in the evening pt was offered a shower and became angry with staff and refused to shower, even though at 0600 this morning he was asking multiple staff to shower. During the course of refusing to shower he said he would take his meds. After taking meds whole he dismissed staff from his room and has been sleeping.
[2021-01-06 06:01] VITALS: BP 136/92
--- NOTE | 2021-01-06 06:29 | PDOC ---
Exam Note: Tereso Note: This note is a late entry for 01/05/2021 covers elements not covered in my initial note. Subjective: The patient was seen individually in the evening of 01/05/2021 with Aissatou BOWLING, discussed and reviewed the chart. The patient slept 6-3/4 hours previous night. He is resistive of his medications previous night, wandering during the day, more confused in the evening, not very social, isolative. I met with him in his room. Review of Systems: Ambulation impaired in wheelchair. No CV, , pulmonary, eye, ENT system symptoms on review. Reliability poor. Mental Status Exam: The patient is oriented to himself and at times situation. Speech has some latency, coherent. Often response is monosyllabic. Abstraction fair. Computation impaired. Language function intact. Short-term memory impaired. At times he seems much more oriented than other times. Laboratory Data: Reviewed. Impression: Major neurocognitive disorder Alzheimer vascular with delusion, depression, behavioral disturbance. Anxiety disorder unspecified. Impulse control disorder unspecified. Plan: No change from initial note. Risperdal may need to be increased if psychotic symptoms resurface. Depakote has been increased. Repeat labs and valproic acid level on 01/06. Adjust as clinically indicated. Assessment: Vital Signs/I&O: Vital Signs Date Time Temp Pulse Resp B/P (MAP) Pulse Ox O2 Delivery O2 Flow Rate FiO2 01/06/21 06:01 98.3 73 16 136/92 (107) 97 Room Air I & O 01/05/21 01/05/21 01/06/21 15:00 23:00 07:00 Intake Total 600 ml 240 ml Balance 600 ml 240 ml Current Medications: Meds: Current Medications Medications (Trade) Dose Ordered Sig/Snow Route PRN Reason Start Time Stop Time Status Last Admin Dose Admin Acetaminophen (Tylenol) 650 mg PRN Q6HRS PRN PO MILD PAIN / TEMP > 100.3'F 12/29/20 11:15 Multi-Ingredient Ointment (Analgesic [place]) 1 dina PRN QID PRN TP MUSCLE PAIN 12/29/20 11:15 Al Hydroxide/Mg Hydroxide (Mylanta Plus Xs) 15 ml PRN AFTMEALHC PRN PO DYSPEPSIA 12/29/20 11:15 Magnesium Hydroxide (Milk Of Magnesia) 2,400 mg PRN QHS PRN PO CONSTIPATION 12/29/20 11:15 Amlodipine Besylate (Norvasc) 10 mg DAILY PO 12/30/20 09:00 01/05/21 08:12 Aspirin (Aspirin Enteric Coated) 81 mg DAILY PO 12/30/20 09:00 01/05/21 08:12 Atorvastatin Calcium (Lipitor) 10 mg QHS PO 12/29/20 21:00 01/05/21 20:32 Donepezil HCl (Aricept) 10 mg DAILY PO 12/30/20 09:00 01/05/21 08:11 Hydrochlorothiazide (Microzide) 12.5 mg DAILY PO 12/30/20 09:00 01/05/21 08:12 Hydroxyzine HCl (Atarax) 50 mg QHS PO 12/29/20 21:00 01/05/21 20:32 Memantine (Namenda) 10 mg BID PO 12/29/20 21:00 01/05/21 20:31 Lisinopril (Prinivil) 40 mg DAILY PO 12/30/20 09:00 01/05/21 08:12 Lorazepam (Ativan) 2 mg PRN Q8HRS PRN PO ANXIETY / AGITATION 12/29/20 12:15 Scopolamine (Transderm-Scop) 1 patch 1X ONCE TD 12/29/20 20:00 12/29/20 20:04 DC 12/29/20 20:29 Divalproex Sodium (Depakote Sprinkles) 250 mg 1X ONCE PO 12/30/20 19:00 12/30/20 19:01 DC 12/30/20 20:40 Divalproex Sodium (Depakote Sprinkles) 125 mg BID PO 12/31/20 09:00 01/02/21 11:55 DC 01/02/21 08:15 Divalproex Sodium (Depakote Sprinkles) 250 mg BID PO 01/02/21 21:00 01/05/21 20:31 Risperidone (RisperDAL) 0.25 mg 1500 PO 01/03/21 18:00 01/05/21 13:53 I have reviewed the current psychotropics carefully including drug interactions. Risk benefit ratio favors no change other than as noted in my dictated progress note. Diagnosis: Problems: (1) Dementia with behavioral disturbance (2) Major neurocognitive disorder (3) Impulse control disorder, unspecified (4) Anxiety disorder, unspecified (5) Dementia, vascular, with depression (6) Dementia, vascular, with delusions (7) Dementia in Alzheimer's disease with depression (8) Dementia in Alzheimer's disease with delusions ABRIL MARTINEZ MD Jan 06, 2021 06:29
[2021-01-06 07:59] LABS: BASO % 0 % (0-3); EOS # 0.2 x10^3/uL (0.0-0.7); EOS % 3 % (0-3); HEMOGLOBIN 13.8 g/dL (13.0-17.5); LYMPH # 2.5 x10^3/uL (1.0-4.8); LYMPH % 31 % (24-48); MEAN CORPUSCULAR HEMOGLOBIN 32 pg (25-35); MEAN CORPUSCULAR HGB CONC 34 g/dL (31-37); MEAN CORPUSCULAR VOLUME 93 fL (79-100); MONO % 12 % (0-9); NEUT # 4.2 x10^3uL (1.8-7.7); NEUT % 54 % (31-73); PLATELET COUNT 298 x10^3/uL (140-400); RED BLOOD COUNT 4.31 x10^6/uL (4.30-5.70); RED CELL DISTRIBUTION WIDTH 12.9 % (11.5-14.5); WHITE BLOOD COUNT 7.9 x10^3/uL (4.0-11.0)
[2021-01-06 08:33] LABS: ALBUMIN 3.3 g/dL (3.4-5.0); ALK PHOS 79 U/L (46-116); ALT (SGPT) 17 U/L (16-63); AST (SGOT) 10 U/L (15-37); BLOOD UREA NITROGEN 13 mg/dL (8-26); CALCIUM 8.7 mg/dL (8.5-10.1); CARBON DIOXIDE 26 mmol/L (21-32); GLUCOSE 106 mg/dL (70-99); TOTAL BILIRUBIN 0.4 mg/dL (0.2-1.0); TOTAL PROTEIN 6.6 g/dL (6.4-8.2)
[2021-01-06] MEDS: LISINOPRIL 20 MG TABLET PO SCH (08:38)
[2021-01-06] MEDS: DIVALPROEX 125 MG CAP.SPRINK PO SCH ×2 (08:38→18:40)
[2021-01-06] MEDS: MEMANTINE 10 MG TABLET. PO SCH ×2 (08:39→18:39)
[2021-01-06] MEDS: hydroCHLOROthiazide 12.5 MG CAPSULE PO SCH (08:39)
[2021-01-06] MEDS: ASPIRIN ENTERIC COATED 81 MG TABLET.DR. PO SCH (08:39)
[2021-01-06] MEDS: amLODIPine BESYLATE 10 MG TABLET PO SCH (08:39)
[2021-01-06] MEDS: DONEPEZIL HCL 10 MG TABLET PO SCH (08:39)
[2021-01-06 08:45] LABS: VAL ACID 16 mcg/mL (50-100)
[2021-01-06 09:01] LABS: ANION GAP 10 (6-14); BUN/CREATININE RATIO 10 (6-20); CHLORIDE 108 mmol/L (98-107); CREATININE 1.3 mg/dL (0.7-1.3); GFR 55.9; POTASSIUM 3.7 mmol/L (3.5-5.1); SODIUM 144 mmol/L (136-145)
[2021-01-06] MEDS: risperiDONE 0.25 MG TABLET. PO SCH (13:50)
[2021-01-06 15:48] VITALS: BP 106/69
[2021-01-06] MEDS: hydrOXYzine HCL 25 MG TABLET PO SCH (18:40)
[2021-01-06] MEDS: ATORVASTATIN CALCIUM 10 MG TABLET. PO SCH (18:40)
--- NOTE | 2021-01-06 21:53 | PDOC ---
Exam Note: Tereso Note: Please also refer to the separate dictated note~for this date of service dictated separately.~Patient seen individually. Discussed the patient with Nursing staff reviewed the chart.~Reviewed interim history and current functioning. Reviewed vital signs,~Labs/ Radiology~and current medications noted below. Continue current treatment with the changes noted in the dictated addendum note Assessment: Vital Signs/I&O: Vital Signs Date Time Temp Pulse Resp B/P (MAP) Pulse Ox O2 Delivery O2 Flow Rate FiO2 01/06/21 15:48 98.7 79 20 106/69 (81) 95 01/06/21 06:01 Room Air I & O 01/05/21 01/05/21 01/06/21 15:00 23:00 07:00 Intake Total 600 ml 240 ml Balance 600 ml 240 ml Labs: Laboratory Tests Test 01/06/21 07:27 01/06/21 11:36 White Blood Count 7.9 x10^3/uL (4.0-11.0) Red Blood Count 4.31 x10^6/uL (4.30-5.70) Hemoglobin 13.8 g/dL (13.0-17.5) Hematocrit 40.0 % (39.0-53.0) Mean Corpuscular Volume 93 fL (79-100) Mean Corpuscular Hemoglobin 32 pg (25-35) Mean Corpuscular Hemoglobin Concent 34 g/dL (31-37) Red Cell Distribution Width 12.9 % (11.5-14.5) Platelet Count 298 x10^3/uL (140-400) Neutrophils (%) (Auto) 54 % (31-73) Lymphocytes (%) (Auto) 31 % (24-48) Monocytes (%) (Auto) 12 % (0-9) H Eosinophils (%) (Auto) 3 % (0-3) Basophils (%) (Auto) 0 % (0-3) Neutrophils # (Auto) 4.2 x10^3uL (1.8-7.7) Lymphocytes # (Auto) 2.5 x10^3/uL (1.0-4.8) Monocytes # (Auto) 1.0 x10^3/uL (0.0-1.1) Eosinophils # (Auto) 0.2 x10^3/uL (0.0-0.7) Basophils # (Auto) 0.0 x10^3/uL (0.0-0.2) Sodium Level 144 mmol/L (136-145) Potassium Level 3.7 mmol/L (3.5-5.1) Chloride Level 108 mmol/L (98-107) H Carbon Dioxide Level 26 mmol/L (21-32) Anion Gap 10 (6-14) Blood Urea Nitrogen 13 mg/dL (8-26) Creatinine 1.3 mg/dL (0.7-1.3) Estimated GFR (Cockcroft-Gault) 55.9 BUN/Creatinine Ratio 10 (6-20) Glucose Level 106 mg/dL (70-99) H Calcium Level 8.7 mg/dL (8.5-10.1) Total Bilirubin 0.4 mg/dL (0.2-1.0) Aspartate Amino Transferase (AST) 10 U/L (15-37) L Alanine Aminotransferase (ALT) 17 U/L (16-63) Alkaline Phosphatase 79 U/L (46-116) Total Protein 6.6 g/dL (6.4-8.2) Albumin 3.3 g/dL (3.4-5.0) L Albumin/Globulin Ratio 1.0 (1.0-1.7) Valproic Acid Level 16 mcg/mL (50-100) L Valproic Acid Last Dose Date 01/05/2021 Valproic Acid Last Dose Time 2100 Glucose (Fingerstick) 114 mg/dL (70-99) H Current Medications: Meds: Laboratory Tests Test 01/06/21 07:27 01/06/21 11:36 White Blood Count 7.9 x10^3/uL Red Blood Count 4.31 x10^6/uL Hemoglobin 13.8 g/dL Hematocrit 40.0 % Mean Corpuscular Volume 93 fL Mean Corpuscular Hemoglobin 32 pg Mean Corpuscular Hemoglobin Concent 34 g/dL Red Cell Distribution Width 12.9 % Platelet Count 298 x10^3/uL Neutrophils (%) (Auto) 54 % Lymphocytes (%) (Auto) 31 % Monocytes (%) (Auto) 12 % Eosinophils (%) (Auto) 3 % Basophils (%) (Auto) 0 % Neutrophils # (Auto) 4.2 x10^3uL Lymphocytes # (Auto) 2.5 x10^3/uL Monocytes # (Auto) 1.0 x10^3/uL Eosinophils # (Auto) 0.2 x10^3/uL Basophils # (Auto) 0.0 x10^3/uL Sodium Level 144 mmol/L Potassium Level 3.7 mmol/L Chloride Level 108 mmol/L Carbon Dioxide Level 26 mmol/L Anion Gap 10 Blood Urea Nitrogen 13 mg/dL Creatinine 1.3 mg/dL Estimated GFR (Cockcroft-Gault) 55.9 BUN/Creatinine Ratio 10 Glucose Level 106 mg/dL Calcium Level 8.7 mg/dL Total Bilirubin 0.4 mg/dL Aspartate Amino Transf (AST/SGOT) 10 U/L Alanine Aminotransferase (ALT/SGPT) 17 U/L Alkaline Phosphatase 79 U/L Total Protein 6.6 g/dL Albumin 3.3 g/dL Albumin/Globulin Ratio 1.0 Valproic Acid (Depakene) Level 16 mcg/mL Valproic Acid Last Dose Date 01/05/2021 Valproic Acid Last Dose Time 2100 Glucose (Fingerstick) 114 mg/dL Current Medications Medications (Trade) Dose Ordered Sig/Snow Route PRN Reason Start Time Stop Time Status Last Admin Dose Admin Acetaminophen (Tylenol) 650 mg PRN Q6HRS PRN PO MILD PAIN / TEMP > 100.3'F 12/29/20 11:15 Multi-Ingredient Ointment (Analgesic [place]) 1 dina PRN QID PRN TP MUSCLE PAIN 12/29/20 11:15 Al Hydroxide/Mg Hydroxide (Mylanta Plus Xs) 15 ml PRN AFTMEALHC PRN PO DYSPEPSIA 12/29/20 11:15 Magnesium Hydroxide (Milk Of Magnesia) 2,400 mg PRN QHS PRN PO CONSTIPATION 12/29/20 11:15 Amlodipine Besylate (Norvasc) 10 mg DAILY PO 12/30/20 09:00 01/06/21 08:39 Aspirin (Aspirin Enteric Coated) 81 mg DAILY PO 12/30/20 09:00 01/06/21 08:39 Atorvastatin Calcium (Lipitor) 10 mg QHS PO 12/29/20 21:00 01/06/21 18:40 Donepezil HCl (Aricept) 10 mg DAILY PO 12/30/20 09:00 01/06/21 08:39 Hydrochlorothiazide (Microzide) 12.5 mg DAILY PO 12/30/20 09:00 6/5/21 08:39 Hydroxyzine HCl (Atarax) 50 mg QHS PO 12/29/20 21:00 01/06/21 18:40 Memantine (Namenda) 10 mg BID PO 12/29/20 21:00 01/06/21 18:39 Lisinopril (Prinivil) 40 mg DAILY PO 12/30/20 09:00 01/06/21 08:38 Lorazepam (Ativan) 2 mg PRN Q8HRS PRN PO ANXIETY / AGITATION 12/29/20 12:15 Scopolamine (Transderm-Scop) 1 patch 1X ONCE TD 12/29/20 20:00 12/29/20 20:04 DC 12/29/20 20:29 Divalproex Sodium (Depakote Sprinkles) 250 mg 1X ONCE PO 12/30/20 19:00 12/30/20 19:01 DC 12/30/20 20:40 Divalproex Sodium (Depakote Sprinkles) 125 mg BID PO 12/31/20 09:00 01/02/21 11:55 DC 01/02/21 08:15 Divalproex Sodium (Depakote Sprinkles) 250 mg BID PO 01/02/21 21:00 01/06/21 17:20 DC 01/06/21 08:38 Risperidone (RisperDAL) 0.25 mg 1500 PO 01/03/21 18:00 01/06/21 13:50 Divalproex Sodium (Depakote Sprinkles) 500 mg BID PO 01/06/21 21:00 01/06/21 18:40 Current Medications Medications (Trade) Dose Ordered Sig/Snow Route PRN Reason Start Time Stop Time Status Last Admin Dose Admin Divalproex Sodium (Depakote Sprinkles) 500 mg BID PO 01/06/21 21:00 01/06/21 18:40 I have reviewed the current psychotropics carefully including drug interactions. Risk benefit ratio favors no change other than as noted in my dictated progress note. Diagnosis: Problems: (1) Dementia with behavioral disturbance (2) Major neurocognitive disorder (3) Impulse control disorder, unspecified (4) Anxiety disorder, unspecified (5) Dementia, vascular, with depression (6) Dementia, vascular, with delusions (7) Dementia in Alzheimer's disease with depression (8) Dementia in Alzheimer's disease with delusions ABRIL MARTINEZ MD Jan 06, 2021 21:53
--- NOTE | 2021-01-06 23:51 | NUR ---
Pt has been wandering unit this evening. Compliant with HS medications and assessment. A/Ox3.
[2021-01-07 06:06] VITALS: BP 127/85
[2021-01-07] MEDS: DONEPEZIL HCL 10 MG TABLET PO SCH (08:47)
[2021-01-07] MEDS: MEMANTINE 10 MG TABLET. PO SCH ×2 (08:47→20:43)
[2021-01-07] MEDS: hydroCHLOROthiazide 12.5 MG CAPSULE PO SCH (08:47)
[2021-01-07] MEDS: ASPIRIN ENTERIC COATED 81 MG TABLET.DR. PO SCH (08:47)
[2021-01-07] MEDS: LISINOPRIL 20 MG TABLET PO SCH (08:48)
[2021-01-07] MEDS: amLODIPine BESYLATE 10 MG TABLET PO SCH (08:48)
[2021-01-07] MEDS: DIVALPROEX 125 MG CAP.SPRINK PO SCH ×2 (08:48→20:43)
--- NOTE | 2021-01-07 09:51 | PDOC ---
Exam Note: Tereso Note: This note is a late entry for 01/06/2021 covers elements not covered in my initial note. Subjective: The patient was seen individually in the evening of 01/06/2021 with Nahun BOWLING, discussed and reviewed the chart. The patient slept 7-1/2 hours previous night. He has been wandering. Valproic acid level is 16. Chloride is somewhat elevated. We will increase Depakote Sprinkle from 250 mg b.i.d. to 500 mg b.i.d. Check CBC, CMP, valproic acid level, ammonia level in 3 days. Adjust further as clinically indicated. Review of Systems: Ambulation impaired in wheelchair. No CV, , pulmonary, eye, ENT system symptoms on review. Mental Status Exam: The patient is oriented to himself and at times situation. I met with him in his room. He has not been agitated or aggressive. Speech has some latency, coherent. Often response is monosyllabic. Abstraction fair. Computation impaired. Language function intact. Short-term memory impaired. Laboratory Data: Reviewed. Impression: Major neurocognitive disorder Alzheimer vascular with delusion, depression, behavioral disturbance. Anxiety disorder unspecified. Impulse control disorder unspecified. Plan: No change from initial note. Valproic acid level is 16. Chloride is somewhat elevated. We will increase Depakote Sprinkle from 250 mg b.i.d. to 500 mg b.i.d. Check CBC, CMP, valproic acid level, ammonia level in 3 days. Adjust further as clinically indicated. Assessment: Vital Signs/I&O: Vital Signs Date Time Temp Pulse Resp B/P (MAP) Pulse Ox O2 Delivery O2 Flow Rate FiO2 01/07/21 08:48 61 127/85 01/07/21 06:06 98.3 16 95 Room Air I & O 01/06/21 01/06/21 01/07/21 15:00 23:00 07:00 Intake Total 600 ml 360 ml Balance 600 ml 360 ml Labs: Laboratory Tests Test 01/06/21 11:36 01/07/21 07:26 Glucose (Fingerstick) 114 mg/dL (70-99) H 102 mg/dL (70-99) H Current Medications: Meds: Laboratory Tests Test 01/06/21 11:36 01/07/21 07:26 Glucose (Fingerstick) 114 mg/dL 102 mg/dL Current Medications Medications (Trade) Dose Ordered Sig/Snow Route PRN Reason Start Time Stop Time Status Last Admin Dose Admin Acetaminophen (Tylenol) 650 mg PRN Q6HRS PRN PO MILD PAIN / TEMP > 100.3'F 12/29/20 11:15 Multi-Ingredient Ointment (Analgesic [place]) 1 dina PRN QID PRN TP MUSCLE PAIN 12/29/20 11:15 Al Hydroxide/Mg Hydroxide (Mylanta Plus Xs) 15 ml PRN AFTMEALHC PRN PO DYSPEPSIA 12/29/20 11:15 Magnesium Hydroxide (Milk Of Magnesia) 2,400 mg PRN QHS PRN PO CONSTIPATION 12/29/20 11:15 Amlodipine Besylate (Norvasc) 10 mg DAILY PO 12/30/20 09:00 01/07/21 08:48 Aspirin (Aspirin Enteric Coated) 81 mg DAILY PO 12/30/20 09:00 01/07/21 08:47 Atorvastatin Calcium (Lipitor) 10 mg QHS PO 12/29/20 21:00 01/06/21 18:40 Donepezil HCl (Aricept) 10 mg DAILY PO 12/30/20 09:00 01/07/21 08:47 Hydrochlorothiazide (Microzide) 12.5 mg DAILY PO 12/30/20 09:00 01/07/21 08:47 Hydroxyzine HCl (Atarax) 50 mg QHS PO 12/29/20 21:00 01/06/21 18:40 Memantine (Namenda) 10 mg BID PO 12/29/20 21:00 01/07/21 08:47 Lisinopril (Prinivil) 40 mg DAILY PO 12/30/20 09:00 01/07/21 08:48 Lorazepam (Ativan) 2 mg PRN Q8HRS PRN PO ANXIETY / AGITATION 12/29/20 12:15 Scopolamine (Transderm-Scop) 1 patch 1X ONCE TD 12/29/20 20:00 12/29/20 20:04 DC 12/29/20 20:29 Divalproex Sodium (Depakote Sprinkles) 250 mg 1X ONCE PO 12/30/20 19:00 12/30/20 19:01 DC 12/30/20 20:40 Divalproex Sodium (Depakote Sprinkles) 125 mg BID PO 12/31/20 09:00 01/02/21 11:55 DC 01/02/21 08:15 Divalproex Sodium (Depakote Sprinkles) 250 mg BID PO 01/02/21 21:00 01/06/21 17:20 DC 01/06/21 08:38 Risperidone (RisperDAL) 0.25 mg 1500 PO 01/03/21 18:00 01/06/21 13:50 Divalproex Sodium (Depakote Sprinkles) 500 mg BID PO 01/06/21 21:00 01/07/21 08:48 Current Medications Medications (Trade) Dose Ordered Sig/Snow Route PRN Reason Start Time Stop Time Status Last Admin Dose Admin Divalproex Sodium (Depakote Sprinkles) 500 mg BID PO 01/06/21 21:00 01/07/21 08:48 I have reviewed the current psychotropics carefully including drug interactions. Risk benefit ratio favors no change other than as noted in my dictated progress note. Diagnosis: Problems: (1) Dementia with behavioral disturbance (2) Major neurocognitive disorder (3) Impulse control disorder, unspecified (4) Anxiety disorder, unspecified (5) Dementia, vascular, with depression (6) Dementia, vascular, with delusions (7) Dementia in Alzheimer's disease with depression (8) Dementia in Alzheimer's disease with delusions ABRIL MARTINEZ MD Jan 07, 2021 09:51
--- NOTE | 2021-01-07 11:29 | NUR ---
Pt A&O to name, , and place only. He is compliant with medications taken whole. He denies N/V/pain this morning, absent of SI/HI/VH/AH/delusions. He appears impulsive at times; abruptly standing and briskly walking out of the day room at random times. At approx 1120 this nurse walked by his room and observed him laying flat on his belly in the middle of the floor. Upon entering and calling his name he picked his head up and a pillow was observed underneath. When asked, he stated that he laid himself down on the floor. Plan of care continues, will pass to next shift.
[2021-01-07] MEDS: risperiDONE 0.25 MG TABLET. PO SCH (15:37)
[2021-01-07 16:01] VITALS: BP 110/70
[2021-01-07] MEDS: hydrOXYzine HCL 25 MG TABLET PO SCH (20:43)
[2021-01-07] MEDS: ATORVASTATIN CALCIUM 10 MG TABLET. PO SCH (20:43)
--- NOTE | 2021-01-07 21:54 | PDOC ---
Exam Note: Tereso Note: Please also refer to the separate dictated note~for this date of service dictated separately.~Patient seen individually. Discussed the patient with Nursing staff reviewed the chart.~Reviewed interim history and current functioning. Reviewed vital signs,~Labs/ Radiology~and current medications noted below. Continue current treatment with the changes noted in the dictated addendum note Assessment: Vital Signs/I&O: Vital Signs Date Time Temp Pulse Resp B/P (MAP) Pulse Ox O2 Delivery O2 Flow Rate FiO2 01/07/21 16:01 98.1 75 16 110/70 (83) 92 01/07/21 06:06 Room Air I & O 01/06/21 01/06/21 01/07/21 15:00 23:00 07:00 Intake Total 600 ml 360 ml Balance 600 ml 360 ml Labs: Laboratory Tests Test 01/07/21 07:26 Glucose (Fingerstick) 102 mg/dL (70-99) H Current Medications: Meds: Laboratory Tests Test 01/07/21 07:26 Glucose (Fingerstick) 102 mg/dL Current Medications Medications (Trade) Dose Ordered Sig/Snow Route PRN Reason Start Time Stop Time Status Last Admin Dose Admin Acetaminophen (Tylenol) 650 mg PRN Q6HRS PRN PO MILD PAIN / TEMP > 100.3'F 12/29/20 11:15 Multi-Ingredient Ointment (Analgesic [place]) 1 dina PRN QID PRN TP MUSCLE PAIN 12/29/20 11:15 Al Hydroxide/Mg Hydroxide (Mylanta Plus Xs) 15 ml PRN AFTMEALHC PRN PO DYSPEPSIA 12/29/20 11:15 Magnesium Hydroxide (Milk Of Magnesia) 2,400 mg PRN QHS PRN PO CONSTIPATION 12/29/20 11:15 Amlodipine Besylate (Norvasc) 10 mg DAILY PO 12/30/20 09:00 01/07/21 08:48 Aspirin (Aspirin Enteric Coated) 81 mg DAILY PO 12/30/20 09:00 01/07/21 08:47 Atorvastatin Calcium (Lipitor) 10 mg QHS PO 12/29/20 21:00 01/07/21 20:43 Donepezil HCl (Aricept) 10 mg DAILY PO 12/30/20 09:00 01/07/21 08:47 Hydrochlorothiazide (Microzide) 12.5 mg DAILY PO 12/30/20 09:00 01/07/21 08:47 Hydroxyzine HCl (Atarax) 50 mg QHS PO 12/29/20 21:00 01/07/21 20:43 Memantine (Namenda) 10 mg BID PO 12/29/20 21:00 01/07/21 20:43 Lisinopril (Prinivil) 40 mg DAILY PO 12/30/20 09:00 01/07/21 08:48 Lorazepam (Ativan) 2 mg PRN Q8HRS PRN PO ANXIETY / AGITATION 12/29/20 12:15 Scopolamine (Transderm-Scop) 1 patch 1X ONCE TD 12/29/20 20:00 12/29/20 20:04 DC 12/29/20 20:29 Divalproex Sodium (Depakote Sprinkles) 250 mg 1X ONCE PO 12/30/20 19:00 12/30/20 19:01 DC 12/30/20 20:40 Divalproex Sodium (Depakote Sprinkles) 125 mg BID PO 12/31/20 09:00 01/02/21 11:55 DC 01/02/21 08:15 Divalproex Sodium (Depakote Sprinkles) 250 mg BID PO 01/02/21 21:00 01/06/21 17:20 DC 01/06/21 08:38 Risperidone (RisperDAL) 0.25 mg 1500 PO 01/03/21 18:00 01/07/21 15:37 Divalproex Sodium (Depakote Sprinkles) 500 mg BID PO 01/06/21 21:00 01/07/21 20:43 I have reviewed the current psychotropics carefully including drug interactions. Risk benefit ratio favors no change other than as noted in my dictated progress note. Diagnosis: Problems: (1) Dementia with behavioral disturbance (2) Major neurocognitive disorder (3) Impulse control disorder, unspecified (4) Anxiety disorder, unspecified (5) Dementia, vascular, with depression (6) Dementia, vascular, with delusions (7) Dementia in Alzheimer's disease with depression (8) Dementia in Alzheimer's disease with delusions ABRIL MARTINEZ MD Jan 07, 2021 21:54
--- NOTE | 2021-01-07 22:45 | NUR ---
Pt located in his room this evening. Very resistive to whole medications. Pt stated there were too many medications and then said he would take just one pill. Pt then stated he would not take any pills until he saw the doctor. After educating pt, he was eventually compliant with medications but irritable.
[2021-01-07] MEDS ORDERED: ACET325T21 PO (23:59)
[2021-01-08] MEDS ORDERED: DIVA125C2 PO
[2021-01-08] MEDS ORDERED: MAG-124 PO
[2021-01-08] MEDS ORDERED: METH57CR17 TP (00:01)
[2021-01-08] MEDS ORDERED: MAGN24003 PO (00:01)
[2021-01-08] MEDS ORDERED: RISP0.5T24 PO (00:02)
[2021-01-08 05:46] VITALS: BP 107/73
[2021-01-08] MEDS: MEMANTINE 10 MG TABLET. PO SCH ×2 (08:53→20:15)
[2021-01-08] MEDS: ASPIRIN ENTERIC COATED 81 MG TABLET.DR. PO SCH (08:53)
[2021-01-08] MEDS: amLODIPine BESYLATE 10 MG TABLET PO SCH (08:54)
[2021-01-08] MEDS: LISINOPRIL 20 MG TABLET PO SCH (08:54)
[2021-01-08] MEDS: DIVALPROEX 125 MG CAP.SPRINK PO SCH ×2 (08:54→20:15)
[2021-01-08] MEDS: DONEPEZIL HCL 10 MG TABLET PO SCH (08:54)
[2021-01-08] MEDS: hydroCHLOROthiazide 12.5 MG CAPSULE PO SCH (08:54)
--- NOTE | 2021-01-08 09:00 | NUR ---
EDMUNDO completed review with Ravi for pt continued stay. Pt will look towards discharging on Friday as his medications were increased on Friday with a concern for pt Chloride level. Pt will have labs drawn Friday and preparation for discharge on Friday will be initiated.
--- NOTE | 2021-01-08 09:20 | NUR ---
EDMUNDO contacted Melissa, ED at [facility], to give her an update on how pt is doing and relayed two more days of coverage by the insurance company as pt received a medication increase and will receive labs tomorrow morning. EDMUNDO will plan to also contact pt with an update.
--- NOTE | 2021-01-08 09:21 | PDOC ---
Exam Note: Tereso Note: This note is a late entry for 01/07/2021 covers elements not covered in my initial note. Subjective: The patient was seen individually in the evening of 01/07/2021 with Aissatou BOWLING, discussed and reviewed the chart. The patient slept 7-1/2 hours previous night. He is compliant with his medications. He has been wandering, somewhat more social. He was found lying on the floor of his room with his belly down, head on the pillow, had put himself there. When I questioned him on this, this evening as I met with him individually he totally denied this. We will check his labs on 01/09 for his Depakote and adjust further as clinically indicated. Review of Systems: Ambulation impaired in wheelchair. No CV, , pulmonary, eye, ENT system symptoms on review. Mental Status Exam: The patient is oriented to himself and situation. Speech is low in rate and rhythm, low in volume. Abstraction fair. Computation impaired. Language function intact. Attention span short. Mood and affect withdrawn. Memory is impaired. Laboratory Data: Reviewed. Impression: Major neurocognitive disorder Alzheimer vascular with delusion, depression, behavioral disturbance. Anxiety disorder unspecified. Impulse control disorder unspecified. Plan: Depakote has been increased from 250 mg b.i.d. to 500 mg b.i.d. with CBC, CMP, valproic acid level, ammonia level to be checked on the 01/09. Continue rest of the psychotropics. Adjust further as clinically indicated. Assessment: Vital Signs/I&O: Vital Signs Date Time Temp Pulse Resp B/P (MAP) Pulse Ox O2 Delivery O2 Flow Rate FiO2 01/08/21 08:54 61 107/73 01/08/21 05:46 97.6 16 93 01/07/21 06:06 Room Air I & O 01/07/21 01/07/21 01/08/21 15:00 23:00 07:00 Intake Total 360 ml 480 ml Balance 360 ml 480 ml Labs: Laboratory Tests Test 01/08/21 07:24 Glucose (Fingerstick) 97 mg/dL (70-99) Current Medications: Meds: Laboratory Tests Test 01/08/21 07:24 Glucose (Fingerstick) 97 mg/dL Current Medications Medications (Trade) Dose Ordered Sig/Snow Route PRN Reason Start Time Stop Time Status Last Admin Dose Admin Acetaminophen (Tylenol) 650 mg PRN Q6HRS PRN PO MILD PAIN / TEMP > 100.3'F 12/29/20 11:15 Multi-Ingredient Ointment (Analgesic [place]) 1 dina PRN QID PRN TP MUSCLE PAIN 12/29/20 11:15 Al Hydroxide/Mg Hydroxide (Mylanta Plus Xs) 15 ml PRN AFTMEALHC PRN PO DYSPEPSIA 12/29/20 11:15 Magnesium Hydroxide (Milk Of Magnesia) 2,400 mg PRN QHS PRN PO CONSTIPATION 12/29/20 11:15 Amlodipine Besylate (Norvasc) 10 mg DAILY PO 12/30/20 09:00 01/08/21 08:54 Aspirin (Aspirin Enteric Coated) 81 mg DAILY PO 12/30/20 09:00 01/08/21 08:53 Atorvastatin Calcium (Lipitor) 10 mg QHS PO 12/29/20 21:00 01/07/21 20:43 Donepezil HCl (Aricept) 10 mg DAILY PO 12/30/20 09:00 01/08/21 08:54 Hydrochlorothiazide (Microzide) 12.5 mg DAILY PO 12/30/20 09:00 01/08/21 08:54 Hydroxyzine HCl (Atarax) 50 mg QHS PO 12/29/20 21:00 01/07/21 20:43 Memantine (Namenda) 10 mg BID PO 12/29/20 21:00 01/08/21 08:53 Lisinopril (Prinivil) 40 mg DAILY PO 12/30/20 09:00 01/08/21 08:54 Lorazepam (Ativan) 2 mg PRN Q8HRS PRN PO ANXIETY / AGITATION 12/29/20 12:15 Scopolamine (Transderm-Scop) 1 patch 1X ONCE TD 12/29/20 20:00 12/29/20 20:04 DC 12/29/20 20:29 Divalproex Sodium (Depakote Sprinkles) 250 mg 1X ONCE PO 12/30/20 19:00 12/30/20 19:01 DC 12/30/20 20:40 Divalproex Sodium (Depakote Sprinkles) 125 mg BID PO 12/31/20 09:00 01/02/21 11:55 DC 01/02/21 08:15 Divalproex Sodium (Depakote Sprinkles) 250 mg BID PO 01/02/21 21:00 01/06/21 17:20 DC 01/06/21 08:38 Risperidone (RisperDAL) 0.25 mg 1500 PO 01/03/21 18:00 01/07/21 15:37 Divalproex Sodium (Depakote Sprinkles) 500 mg BID PO 01/06/21 21:00 01/08/21 08:54 I have reviewed the current psychotropics carefully including drug interactions. Risk benefit ratio favors no change other than as noted in my dictated progress note. Diagnosis: Problems: (1) Dementia with behavioral disturbance (2) Major neurocognitive disorder (3) Impulse control disorder, unspecified (4) Anxiety disorder, unspecified (5) Dementia, vascular, with depression (6) Dementia, vascular, with delusions (7) Dementia in Alzheimer's disease with depression (8) Dementia in Alzheimer's disease with delusions ABRIL MARTINEZ MD Jan 08, 2021 09:21
--- NOTE | 2021-01-08 10:29 | NUR ---
Nursing note: Pt in his room at time of AM med pass and assessment. He is compliant with meds crushed in applesauce and cooperative with his assessment. Pt denies having any pain/concerns. Pt continues to be withdrawn to his room with not much interaction. Will continue to monitor.
--- NOTE | 2021-01-08 13:11 | NUR ---
WEEKLY ACTIVITY THERAPY NOTE Date of Admission: 12/29/20 Date of AT Assessment: 01/01 Precipitating behaviors that initiated intake and admission:climbed out a window at his facility then climbed in the window of a house with a hammer, refusing cares, anxious, restless, slapped staff Goal aimed: increase socialization and engagement Initial Goal: Pt will participate in at least three individual or group Activity Therapy sessions per week. Weekly progress towards goal: achieved, 4/3 Group participation level: 1 min, 2 mod, 1 full Weekly highlights: betsy chi exercises Friday, music bingo , bubbles and patio time Friday Behaviors observed: needed a lot of redirection as he kept trying to get up and wander Plan: no change to goal at this time Beneficial adaptations: music
[2021-01-08] MEDS: risperiDONE 0.25 MG TABLET. PO SCH (15:29)
--- NOTE | 2021-01-08 16:00 | TX PLAN ---
Interdisciplinary Tx Plan Admission Information December 29, 2020 at 09:17 Legal Status (on Admission): Voluntary DPOA/Guardian Name: Sarahy Tapia Contact Verified Code Status: Full Code Allergies: Coded Allergies: No Known Drug Allergies (Unverified , 12/28/20) Diagnoses Primary Diagnosis: Dementia with BD Reasons for Admission: Aggressive, Depressed, Anxiety/Panic, Suspicious/paranoid, Poor impulse control, Other Additional Admission Comments: According to the intake, pt "wants to go", his restless, pacing, jumped out of a window and entered someone's home; refusing cares, depressed, anxious, laughs inappropriately, slapped staff on the butt. Problems Active Problems: wanders agtitated medication compliant Pt Strengths/Limitations Ability for Beckham: Poor Cognitive Functioning/Ability: Fair Communication Skills/Ability: Fair Financial Resources: Good Insight/Judgement: Poor Intellectual Ability: Fair Physical Health: Fair Social Skills: Poor Stability in Family: Good Stability in School/Work: Poor Verbal Skills: Fair Discharge Criteria Discharge Criteria: No need for close observ., Adequate arrangements @DC, Improved behavior, Improved mood/thought Preliminary Discharge Plan Preliminary DC Plan: Current Living Arrange. Special Precautions Fall Risk: Low Initial D/C Plan Will plan to return to placement once stable. Identified Discharge Needs: Psychiatiric services Currently Utilized Resources Currently Utilized Resources/P: Primary Care Physician Referrals Community Resources: Mental health services Identified Problems/Hx/Goals Objectives/Short-Term Goals Short Term Goals: Dec. Aggression, Dec. Anxiety/Panic, Dec. Outbursts, Improved Social Skills, Medication Stabilization, Monitor Med Effects, Promote Coping Skill Short Term Goals in Patient's: N/A Interventions/Frequency Staff Interventions/Frequency&: Psychiatrist to assess pt at least 3x per week for medication management. Social Work to assess pt at least 2x per week to identify barriers to care and discharge planning. Nursing to assess medication effects, behavioral modification and completion of 15 minute checks. Encourage participation in group activities (if applicable) or 1:1 engagement based of activity dept goals. Community Follow-up Primary Care Physician Community Provider/Family Inpu: I really need him to be as stable as possible so he can return to his placement or they will be asking him to leave. Treatment Plan Explained Patient/Queen Producer had this treatment plan explained to him/her as indicated by the signature below and has been given the opportunity to ask questions and make suggestions: Date: Patient/Queen Producer Signature: Patient/Queen Producer Decline: No (Pt is active in pt care.) Status Update Update Please note that this is pt second Interdisciplinary Treatment Team. Pt first team was on Tuesday 01/02 (in lieu of Monday 01/01 being a holiday). Pt is eating roughly 75% of meals and sleeping on average 6.75 hours per night. Pt tends to be withdrawn to his room and was found over the weekend laying on the floor on his stomach (pt placed himself there). Pt continues to be resistive to medications, but through much education and prompting, pt will eventually take them. He prefers to have his medications crushed instead of whole. Pt has attended four activity therapy groups and does need pretty frequent redirection for getting up and down during the activity. Pt Depakote was increased to 500mg BID with labs and levels on Tuesday 01/09. Pt [employer] insurance has covered until Wednesday 01/10 with a potential discharge back to [facility]. ALVIN ARREDONDO Jan 08, 2021 16:00
[2021-01-08 16:02] VITALS: BP 105/71
[2021-01-08] MEDS: ATORVASTATIN CALCIUM 10 MG TABLET. PO SCH (20:15)
[2021-01-08] MEDS: hydrOXYzine HCL 25 MG TABLET PO SCH (20:16)
--- NOTE | 2021-01-08 21:57 | PDOC ---
Exam Note: Tereso Note: Please also refer to the separate dictated note~for this date of service dictated separately.~Patient seen individually. Discussed the patient with Nursing staff reviewed the chart.~Reviewed interim history and current functioning. Reviewed vital signs,~Labs/ Radiology~and current medications noted below. Continue current treatment with the changes noted in the dictated addendum note Assessment: Vital Signs/I&O: Vital Signs Date Time Temp Pulse Resp B/P (MAP) Pulse Ox O2 Delivery O2 Flow Rate FiO2 01/08/21 16:02 98.4 85 16 105/71 (82) 98 01/07/21 06:06 Room Air I & O 01/07/21 01/07/21 01/08/21 15:00 23:00 07:00 Intake Total 360 ml 480 ml Balance 360 ml 480 ml Labs: Laboratory Tests Test 01/08/21 07:24 Glucose (Fingerstick) 97 mg/dL (70-99) Current Medications: Meds: Laboratory Tests Test 01/08/21 07:24 Glucose (Fingerstick) 97 mg/dL Current Medications Medications (Trade) Dose Ordered Sig/Snow Route PRN Reason Start Time Stop Time Status Last Admin Dose Admin Acetaminophen (Tylenol) 650 mg PRN Q6HRS PRN PO MILD PAIN / TEMP > 100.3'F 12/29/20 11:15 Multi-Ingredient Ointment (Analgesic [place]) 1 dina PRN QID PRN TP MUSCLE PAIN 12/29/20 11:15 Al Hydroxide/Mg Hydroxide (Mylanta Plus Xs) 15 ml PRN AFTMEALHC PRN PO DYSPEPSIA 12/29/20 11:15 Magnesium Hydroxide (Milk Of Magnesia) 2,400 mg PRN QHS PRN PO CONSTIPATION 12/29/20 11:15 Amlodipine Besylate (Norvasc) 10 mg DAILY PO 12/30/20 09:00 01/08/21 08:54 Aspirin (Aspirin Enteric Coated) 81 mg DAILY PO 12/30/20 09:00 01/08/21 08:53 Atorvastatin Calcium (Lipitor) 10 mg QHS PO 12/29/20 21:00 01/08/21 20:15 Donepezil HCl (Aricept) 10 mg DAILY PO 12/30/20 09:00 01/08/21 08:54 Hydrochlorothiazide (Microzide) 12.5 mg DAILY PO 12/30/20 09:00 01/08/21 08:54 Hydroxyzine HCl (Atarax) 50 mg QHS PO 12/29/20 21:00 01/08/21 20:16 Memantine (Namenda) 10 mg BID PO 12/29/20 21:00 01/08/21 20:15 Lisinopril (Prinivil) 40 mg DAILY PO 12/30/20 09:00 01/08/21 08:54 Lorazepam (Ativan) 2 mg PRN Q8HRS PRN PO ANXIETY / AGITATION 12/29/20 12:15 Scopolamine (Transderm-Scop) 1 patch 1X ONCE TD 12/29/20 20:00 12/29/20 20:04 DC 12/29/20 20:29 Divalproex Sodium (Depakote Sprinkles) 250 mg 1X ONCE PO 12/30/20 19:00 12/30/20 19:01 DC 12/30/20 20:40 Divalproex Sodium (Depakote Sprinkles) 125 mg BID PO 12/31/20 09:00 01/02/21 11:55 DC 01/02/21 08:15 Divalproex Sodium (Depakote Sprinkles) 250 mg BID PO 01/02/21 21:00 01/06/21 17:20 DC 01/06/21 08:38 Risperidone (RisperDAL) 0.25 mg 1500 PO 01/03/21 18:00 01/08/21 15:29 Divalproex Sodium (Depakote Sprinkles) 500 mg BID PO 01/06/21 21:00 01/08/21 20:15 I have reviewed the current psychotropics carefully including drug interactions. Risk benefit ratio favors no change other than as noted in my dictated progress note. Diagnosis: Problems: (1) Dementia with behavioral disturbance (2) Major neurocognitive disorder (3) Impulse control disorder, unspecified (4) Anxiety disorder, unspecified (5) Dementia, vascular, with depression (6) Dementia, vascular, with delusions (7) Dementia in Alzheimer's disease with depression (8) Dementia in Alzheimer's disease with delusions ABRIL MARTINEZ MD Jan 08, 2021 21:57
--- NOTE | 2021-01-08 22:53 | NUR ---
Pt restless this evening. Pt in and out of his room numerous times; sitting down in the dayroom and then immediately getting up. Pt placed himself on the floor in the dayroom once this evening. Compliant with crushed medications and shower.
[2021-01-09 06:12] VITALS: BP 113/72
[2021-01-09 07:08] LABS: HEMATOCRIT 44.2 % (39.0-53.0); HEMOGLOBIN 14.9 g/dL (13.0-17.5); RED BLOOD COUNT 4.73 x10^6/uL (4.30-5.70); WHITE BLOOD COUNT 6.7 x10^3/uL (4.0-11.0)
[2021-01-09 07:30] LABS: ALBUMIN 3.5 g/dL (3.4-5.0); ALK PHOS 89 U/L (46-116); ALT (SGPT) 17 U/L (16-63); ANION GAP 11 (6-14); AST (SGOT) 8 U/L (15-37); BLOOD UREA NITROGEN 19 mg/dL (8-26); BUN/CREATININE RATIO 15 (6-20); CARBON DIOXIDE 25 mmol/L (21-32); CHLORIDE 108 mmol/L (98-107); CREATININE 1.3 mg/dL (0.7-1.3); GFR 55.9; GLUCOSE 96 mg/dL (70-99); POTASSIUM 3.5 mmol/L (3.5-5.1); SODIUM 144 mmol/L (136-145); TOTAL BILIRUBIN 0.6 mg/dL (0.2-1.0); TOTAL PROTEIN 7.1 g/dL (6.4-8.2)
[2021-01-09 07:41] LABS: VAL ACID 55 mcg/mL (50-100)
[2021-01-09] MEDS: ASPIRIN ENTERIC COATED 81 MG TABLET.DR. PO SCH (08:13)
[2021-01-09] MEDS: MEMANTINE 10 MG TABLET. PO SCH ×2 (08:13→21:00)
[2021-01-09] MEDS: DONEPEZIL HCL 10 MG TABLET PO SCH (08:13)
[2021-01-09] MEDS: hydroCHLOROthiazide 12.5 MG CAPSULE PO SCH (08:13)
[2021-01-09] MEDS: LISINOPRIL 20 MG TABLET PO SCH (08:14)
[2021-01-09] MEDS: DIVALPROEX 125 MG CAP.SPRINK PO SCH ×2 (08:14→21:01)
[2021-01-09] MEDS: amLODIPine BESYLATE 10 MG TABLET PO SCH (08:14)
--- NOTE | 2021-01-09 09:00 | PDOC ---
Exam Note: Tereso Note: This note is a late entry for 01/08/2021 covers elements not covered in my initial note. Subjective: The patient was reviewed in the morning of 01/08/2021 for a treatment team meeting with Kori Centeno, Monet Singletary and Demi (social worker masters), Leeanne, activity therapy and Veena BOWLING, discussed and reviewed the chart. The patient slept 8-3/4 hours previous night. Appetite is 75%. He remains withdrawn, spends much time in bed but generally awake, leaves his eye closed, resistive to medications at times. Review of Systems: Ambulation impaired in wheelchair. No CV, , pulmonary, eye, ENT system symptoms on review. Mental Status Exam: The patient is oriented to himself and situation. Speech has some latency, coherent. Abstraction fair. Computation impaired. When I asked him what was 100-7, he responded 103. He knew the current President was President Delmer but when I questioned him he thought the prior President was President Polo. He knew 2020 was the year but felt the month was December. Language function intact. Attention span short. Mood and affect withdrawn. Memory is impaired. Laboratory Data: Reviewed. Impression: Major neurocognitive disorder Alzheimer vascular with delusion, depression, behavioral disturbance. Anxiety disorder unspecified. Impulse control disorder unspecified. Plan: Continue current psychotropics. Check CBC, CMP, valproic acid level tomorrow morning. Adjust Depakote to reach therapeutic level. Maintain Aricept, Namenda, Rispedl and Depakote unchanged for now. Assessment: Vital Signs/I&O: Vital Signs Date Time Temp Pulse Resp B/P (MAP) Pulse Ox O2 Delivery O2 Flow Rate FiO2 01/09/21 08:14 69 113/72 01/09/21 06:12 97.6 20 94 Room Air I & O 01/08/21 01/08/21 01/09/21 15:00 23:00 07:00 Intake Total 720 ml 600 ml Balance 720 ml 600 ml Labs: Laboratory Tests Test 01/09/21 06:30 01/09/21 07:45 White Blood Count 6.7 x10^3/uL (4.0-11.0) Red Blood Count 4.73 x10^6/uL (4.30-5.70) Hemoglobin 14.9 g/dL (13.0-17.5) Hematocrit 44.2 % (39.0-53.0) Mean Corpuscular Volume 93 fL (79-100) Mean Corpuscular Hemoglobin 32 pg (25-35) Mean Corpuscular Hemoglobin Concent 34 g/dL (31-37) Red Cell Distribution Width 13.0 % (11.5-14.5) Platelet Count 293 x10^3/uL (140-400) Sodium Level 144 mmol/L (136-145) Potassium Level 3.5 mmol/L (3.5-5.1) Chloride Level 108 mmol/L (98-107) H Carbon Dioxide Level 25 mmol/L (21-32) Anion Gap 11 (6-14) Blood Urea Nitrogen 19 mg/dL (8-26) Creatinine 1.3 mg/dL (0.7-1.3) Estimated GFR (Cockcroft-Gault) 55.9 BUN/Creatinine Ratio 15 (6-20) Glucose Level 96 mg/dL (70-99) Calcium Level 9.0 mg/dL (8.5-10.1) Total Bilirubin 0.6 mg/dL (0.2-1.0) Aspartate Amino Transferase (AST) 8 U/L (15-37) L Alanine Aminotransferase (ALT) 17 U/L (16-63) Alkaline Phosphatase 89 U/L (46-116) Ammonia 44 mcmol/L (11-34) H Total Protein 7.1 g/dL (6.4-8.2) Albumin 3.5 g/dL (3.4-5.0) Albumin/Globulin Ratio 1.0 (1.0-1.7) Valproic Acid Level 55 mcg/mL (50-100) Valproic Acid Last Dose Date 01/08/21 Valproic Acid Last Dose Time 2100 Glucose (Fingerstick) 105 mg/dL (70-99) H Current Medications: Meds: Laboratory Tests Test 01/09/21 06:30 01/09/21 07:45 White Blood Count 6.7 x10^3/uL Red Blood Count 4.73 x10^6/uL Hemoglobin 14.9 g/dL Hematocrit 44.2 % Mean Corpuscular Volume 93 fL Mean Corpuscular Hemoglobin 32 pg Mean Corpuscular Hemoglobin Concent 34 g/dL Red Cell Distribution Width 13.0 % Platelet Count 293 x10^3/uL Sodium Level 144 mmol/L Potassium Level 3.5 mmol/L Chloride Level 108 mmol/L Carbon Dioxide Level 25 mmol/L Anion Gap 11 Blood Urea Nitrogen 19 mg/dL Creatinine 1.3 mg/dL Estimated GFR (Cockcroft-Gault) 55.9 BUN/Creatinine Ratio 15 Glucose Level 96 mg/dL Calcium Level 9.0 mg/dL Total Bilirubin 0.6 mg/dL Aspartate Amino Transf (AST/SGOT) 8 U/L Alanine Aminotransferase (ALT/SGPT) 17 U/L Alkaline Phosphatase 89 U/L Ammonia 44 mcmol/L Total Protein 7.1 g/dL Albumin 3.5 g/dL Albumin/Globulin Ratio 1.0 Valproic Acid (Depakene) Level 55 mcg/mL Valproic Acid Last Dose Date 01/08/21 Valproic Acid Last Dose Time 2100 Glucose (Fingerstick) 105 mg/dL Current Medications Medications (Trade) Dose Ordered Sig/Snow Route PRN Reason Start Time Stop Time Status Last Admin Dose Admin Acetaminophen (Tylenol) 650 mg PRN Q6HRS PRN PO MILD PAIN / TEMP > 100.3'F 12/29/20 11:15 Multi-Ingredient Ointment (Analgesic [place]) 1 dina PRN QID PRN TP MUSCLE PAIN 12/29/20 11:15 Al Hydroxide/Mg Hydroxide (Mylanta Plus Xs) 15 ml PRN AFTMEALHC PRN PO DYSPEPSIA 12/29/20 11:15 Magnesium Hydroxide (Milk Of Magnesia) 2,400 mg PRN QHS PRN PO CONSTIPATION 12/29/20 11:15 Amlodipine Besylate (Norvasc) 10 mg DAILY PO 12/30/20 09:00 01/09/21 08:14 Aspirin (Aspirin Enteric Coated) 81 mg DAILY PO 12/30/20 09:00 01/09/21 08:13 Atorvastatin Calcium (Lipitor) 10 mg QHS PO 12/29/20 21:00 01/08/21 20:15 Donepezil HCl (Aricept) 10 mg DAILY PO 12/30/20 09:00 01/09/21 08:13 Hydrochlorothiazide (Microzide) 12.5 mg DAILY PO 12/30/20 09:00 01/09/21 08:13 Hydroxyzine HCl (Atarax) 50 mg QHS PO 12/29/20 21:00 01/08/21 20:16 Memantine (Namenda) 10 mg BID PO 12/29/20 21:00 01/09/21 08:13 Lisinopril (Prinivil) 40 mg DAILY PO 12/30/20 09:00 01/09/21 08:14 Lorazepam (Ativan) 2 mg PRN Q8HRS PRN PO ANXIETY / AGITATION 12/29/20 12:15 Scopolamine (Transderm-Scop) 1 patch 1X ONCE TD 12/29/20 20:00 12/29/20 20:04 DC 12/29/20 20:29 Divalproex Sodium (Depakote Sprinkles) 250 mg 1X ONCE PO 12/30/20 19:00 12/30/20 19:01 DC 12/30/20 20:40 Divalproex Sodium (Depakote Sprinkles) 125 mg BID PO 12/31/20 09:00 01/02/21 11:55 DC 01/02/21 08:15 Divalproex Sodium (Depakote Sprinkles) 250 mg BID PO 01/02/21 21:00 01/06/21 17:20 DC 01/06/21 08:38 Risperidone (RisperDAL) 0.25 mg 1500 PO 01/03/21 18:00 01/08/21 15:29 Divalproex Sodium (Depakote Sprinkles) 500 mg BID PO 01/06/21 21:00 01/09/21 08:14 I have reviewed the current psychotropics carefully including drug interactions. Risk benefit ratio favors no change other than as noted in my dictated progress note. Diagnosis: Problems: (1) Dementia with behavioral disturbance (2) Major neurocognitive disorder (3) Impulse control disorder, unspecified (4) Anxiety disorder, unspecified (5) Dementia, vascular, with depression (6) Dementia, vascular, with delusions (7) Dementia in Alzheimer's disease with depression (8) Dementia in Alzheimer's disease with delusions ABRIL MARTINEZ MD Jan 09, 2021 09:00
--- NOTE | 2021-01-09 11:03 | NUR ---
Nursing note: Pt in dining room at time of AM med pass and assessment. He is withdrawn, but pleasant, med compliant and cooperative. He denies having any pain/concerns. No behaviors noted this shift. He continues to be withdrawn to his room. Will continue to monitor.
[2021-01-09] MEDS: risperiDONE 0.25 MG TABLET. PO SCH (14:35)
--- NOTE | 2021-01-09 15:15 | NUR ---
Nursing note: Pt laying in his bed when I went to give him his medication, he requested to take it in vanilla pudding. I went to grab the pudding and went back to his room and pt was no longer in his room. He was found sleeping in another pt's bed. Pt was redirected out of the room and he walked down the acosta towards the dining room. At dining room door, pt dropped down to his knees and then attempted to open the door. When he was unable to get the door open, pt laid himself completely on the floor and attempted to fall asleep in front of the dining room door. Pt was assisted off the floor and he went back to lay in his bed. Will continue to monitor.
--- NOTE | 2021-01-09 15:18 | NUR ---
[facility] Social Work Discharge Planning Form Patient Name MARCELINA GALVAN Admit Date: 29 Dec 2020 DISCHARGE PLAN Discharge Destination: Pt to discharge back to [facility] Assessment: N/A Level II Assessment: N/A Transportation: Facility will have to arrangement transportation in the morning. Special Instructions/Notes: Please fax over discharge orders, discharge medication list and discharge summary to the fax number listed below. DISCHARGE TO FACILITY Facility: [facility] Address: [address] [place] [address]; [place] [address] Contact Name: Melissa Estevez, Reference Library Assistant: Contact Name: Please ask to speak with the nurse caring for pt upon admission PCP: Shahbaz Montana
[2021-01-09 15:56] VITALS: BP 103/69
--- NOTE | 2021-01-09 18:45 | NUR ---
Nursing note: Pt observed walking down the hallway completely naked. He was redirected back to his room to get dressed and educated on why he should not walk through the halls naked. Not even 5 minutes later, pt had got undressed again and walking through the hallway in just a brief. Pt educated that if he is unable to keep his clothes on while walking through the acosta, he will have to be placed in a one piece.
[2021-01-09] MEDS: hydrOXYzine HCL 25 MG TABLET PO SCH (21:01)
[2021-01-09] MEDS: ATORVASTATIN CALCIUM 10 MG TABLET. PO SCH (21:01)
--- NOTE | 2021-01-09 22:16 | PDOC ---
Exam Note: Tereso Note: Please also refer to the separate dictated note~for this date of service dictated separately.~Patient seen individually. Discussed the patient with Nursing staff reviewed the chart.~Reviewed interim history and current functioning. Reviewed vital signs,~Labs/ Radiology~and current medications noted below. Continue current treatment with the changes noted in the dictated addendum note Assessment: Vital Signs/I&O: Vital Signs Date Time Temp Pulse Resp B/P (MAP) Pulse Ox O2 Delivery O2 Flow Rate FiO2 01/09/21 15:56 97.9 84 16 103/69 (80) 95 01/09/21 06:12 Room Air I & O 01/08/21 01/08/21 01/09/21 15:00 23:00 07:00 Intake Total 720 ml 600 ml Balance 720 ml 600 ml Labs: Laboratory Tests Test 01/09/21 06:30 01/09/21 07:45 White Blood Count 6.7 x10^3/uL (4.0-11.0) Red Blood Count 4.73 x10^6/uL (4.30-5.70) Hemoglobin 14.9 g/dL (13.0-17.5) Hematocrit 44.2 % (39.0-53.0) Mean Corpuscular Volume 93 fL (79-100) Mean Corpuscular Hemoglobin 32 pg (25-35) Mean Corpuscular Hemoglobin Concent 34 g/dL (31-37) Red Cell Distribution Width 13.0 % (11.5-14.5) Platelet Count 293 x10^3/uL (140-400) Sodium Level 144 mmol/L (136-145) Potassium Level 3.5 mmol/L (3.5-5.1) Chloride Level 108 mmol/L (98-107) H Carbon Dioxide Level 25 mmol/L (21-32) Anion Gap 11 (6-14) Blood Urea Nitrogen 19 mg/dL (8-26) Creatinine 1.3 mg/dL (0.7-1.3) Estimated GFR (Cockcroft-Gault) 55.9 BUN/Creatinine Ratio 15 (6-20) Glucose Level 96 mg/dL (70-99) Calcium Level 9.0 mg/dL (8.5-10.1) Total Bilirubin 0.6 mg/dL (0.2-1.0) Aspartate Amino Transferase (AST) 8 U/L (15-37) L Alanine Aminotransferase (ALT) 17 U/L (16-63) Alkaline Phosphatase 89 U/L (46-116) Ammonia 44 mcmol/L (11-34) H Total Protein 7.1 g/dL (6.4-8.2) Albumin 3.5 g/dL (3.4-5.0) Albumin/Globulin Ratio 1.0 (1.0-1.7) Valproic Acid Level 55 mcg/mL (50-100) Valproic Acid Last Dose Date 01/08/21 Valproic Acid Last Dose Time 2100 Glucose (Fingerstick) 105 mg/dL (70-99) H Current Medications: Meds: Laboratory Tests Test 01/09/21 06:30 01/09/21 07:45 White Blood Count 6.7 x10^3/uL Red Blood Count 4.73 x10^6/uL Hemoglobin 14.9 g/dL Hematocrit 44.2 % Mean Corpuscular Volume 93 fL Mean Corpuscular Hemoglobin 32 pg Mean Corpuscular Hemoglobin Concent 34 g/dL Red Cell Distribution Width 13.0 % Platelet Count 293 x10^3/uL Sodium Level 144 mmol/L Potassium Level 3.5 mmol/L Chloride Level 108 mmol/L Carbon Dioxide Level 25 mmol/L Anion Gap 11 Blood Urea Nitrogen 19 mg/dL Creatinine 1.3 mg/dL Estimated GFR (Cockcroft-Gault) 55.9 BUN/Creatinine Ratio 15 Glucose Level 96 mg/dL Calcium Level 9.0 mg/dL Total Bilirubin 0.6 mg/dL Aspartate Amino Transf (AST/SGOT) 8 U/L Alanine Aminotransferase (ALT/SGPT) 17 U/L Alkaline Phosphatase 89 U/L Ammonia 44 mcmol/L Total Protein 7.1 g/dL Albumin 3.5 g/dL Albumin/Globulin Ratio 1.0 Valproic Acid (Depakene) Level 55 mcg/mL Valproic Acid Last Dose Date 01/08/21 Valproic Acid Last Dose Time 2100 Glucose (Fingerstick) 105 mg/dL Current Medications Medications (Trade) Dose Ordered Sig/Snow Route PRN Reason Start Time Stop Time Status Last Admin Dose Admin Acetaminophen (Tylenol) 650 mg PRN Q6HRS PRN PO MILD PAIN / TEMP > 100.3'F 12/29/20 11:15 Multi-Ingredient Ointment (Analgesic [place]) 1 dina PRN QID PRN TP MUSCLE PAIN 12/29/20 11:15 Al Hydroxide/Mg Hydroxide (Mylanta Plus Xs) 15 ml PRN AFTMEALHC PRN PO DYSPEPSIA 12/29/20 11:15 Magnesium Hydroxide (Milk Of Magnesia) 2,400 mg PRN QHS PRN PO CONSTIPATION 12/29/20 11:15 Amlodipine Besylate (Norvasc) 10 mg DAILY PO 12/30/20 09:00 01/09/21 08:14 Aspirin (Aspirin Enteric Coated) 81 mg DAILY PO 12/30/20 09:00 01/09/21 08:13 Atorvastatin Calcium (Lipitor) 10 mg QHS PO 12/29/20 21:00 01/09/21 21:01 Donepezil HCl (Aricept) 10 mg DAILY PO 12/30/20 09:00 01/09/21 08:13 Hydrochlorothiazide (Microzide) 12.5 mg DAILY PO 12/30/20 09:00 01/09/21 08:13 Hydroxyzine HCl (Atarax) 50 mg QHS PO 12/29/20 21:00 01/09/21 21:01 Memantine (Namenda) 10 mg BID PO 12/29/20 21:00 01/09/21 21:00 Lisinopril (Prinivil) 40 mg DAILY PO 12/30/20 09:00 01/09/21 08:14 Lorazepam (Ativan) 2 mg PRN Q8HRS PRN PO ANXIETY / AGITATION 12/29/20 12:15 Scopolamine (Transderm-Scop) 1 patch 1X ONCE TD 12/29/20 20:00 12/29/20 20:04 DC 12/29/20 20:29 Divalproex Sodium (Depakote Sprinkles) 250 mg 1X ONCE PO 12/30/20 19:00 12/30/20 19:01 DC 12/30/20 20:40 Divalproex Sodium (Depakote Sprinkles) 125 mg BID PO 12/31/20 09:00 01/02/21 11:55 DC 01/02/21 08:15 Divalproex Sodium (Depakote Sprinkles) 250 mg BID PO 01/02/21 21:00 01/06/21 17:20 DC 01/06/21 08:38 Risperidone (RisperDAL) 0.25 mg 1500 PO 01/03/21 18:00 01/09/21 14:35 Divalproex Sodium (Depakote Sprinkles) 500 mg BID PO 01/06/21 21:00 01/09/21 21:01 I have reviewed the current psychotropics carefully including drug interactions. Risk benefit ratio favors no change other than as noted in my dictated progress note. Diagnosis: Problems: (1) Dementia with behavioral disturbance (2) Major neurocognitive disorder (3) Impulse control disorder, unspecified (4) Anxiety disorder, unspecified (5) Dementia, vascular, with depression (6) Dementia, vascular, with delusions (7) Dementia in Alzheimer's disease with depression (8) Dementia in Alzheimer's disease with delusions ABRIL MARTINEZ MD Jan 09, 2021 22:16
--- NOTE | 2021-01-09 23:48 | NUR ---
Nursing note Pt has an odd affect, stares at staff as if he is looking through them. Upon assessment pt asks me what time is breakfast? I informed him it would be in the am. He looked confused and stated he thought it was currently morning. Later pt in hallway walking trying to take off his clothing. Easily redirected.
[2021-01-10 06:33] VITALS: BP 121/76
--- NOTE | 2021-01-10 06:38 | PDOC ---
Exam Note: Tereso Note: This note is a late entry for 01/09/2021 covers elements not covered in my initial note. Subjective: The patient was seen individually in the evening of 01/09/2021 with Veena BOWLING, discussed and reviewed the chart. The patient slept 6-1/4 hours previous night. I met with the patient at some length in his room. He is compliant with medications. Previous night he was up and down per nursing staff, did accept redirection. At 1500 hours he was wanting his medications whole floated in pudding but then he walked out of the room by the time the nursing staff got it to him and then he put himself on the floor in the dining room trying to go off to sleep rather bizarre behavior. Ammonia level is 44 upper limit of 34 is normal. We will repeat ammonia level in the morning. CBC is unremarkable. Chloride is elevated. Rest of the electrolytes is unremarkable. Review of Systems: Ambulation impaired in wheelchair. No CV, , pulmonary, eye, ENT system symptoms on review. Mental Status Exam: The patient is oriented to himself and at times situation. Speech has moderate latency, coherent. Often response is monosyllabic. Abstraction fair. Computation impaired. Language function intact. Mood and affect somewhat withdrawn. Laboratory Data: Reviewed. Impression: Major neurocognitive disorder Alzheimer vascular with delusion, depression, behavioral disturbance. Anxiety disorder unspecified. Impulse control disorder unspecified. Plan: Continue current psychotropics. Repeat ammonia level. Valproic acid level will be repeated to adjust to a therapeutic level. Rest unchanged for now. Assessment: Vital Signs/I&O: Vital Signs Date Time Temp Pulse Resp B/P (MAP) Pulse Ox O2 Delivery O2 Flow Rate FiO2 01/10/21 06:33 98.4 87 18 121/76 (91) 94 01/09/21 06:12 Room Air I & O 01/09/21 01/09/21 01/10/21 15:00 23:00 07:00 Intake Total 480 ml 360 ml Balance 480 ml 360 ml Labs: Laboratory Tests Test 01/09/21 07:45 Glucose (Fingerstick) 105 mg/dL (70-99) H Current Medications: Meds: Laboratory Tests Test 01/09/21 07:45 Glucose (Fingerstick) 105 mg/dL Current Medications Medications (Trade) Dose Ordered Sig/Snow Route PRN Reason Start Time Stop Time Status Last Admin Dose Admin Acetaminophen (Tylenol) 650 mg PRN Q6HRS PRN PO MILD PAIN / TEMP > 100.3'F 12/29/20 11:15 Multi-Ingredient Ointment (Analgesic [place]) 1 dina PRN QID PRN TP MUSCLE PAIN 12/29/20 11:15 Al Hydroxide/Mg Hydroxide (Mylanta Plus Xs) 15 ml PRN AFTMEALHC PRN PO DYSPEPSIA 12/29/20 11:15 Magnesium Hydroxide (Milk Of Magnesia) 2,400 mg PRN QHS PRN PO CONSTIPATION 12/29/20 11:15 Amlodipine Besylate (Norvasc) 10 mg DAILY PO 12/30/20 09:00 01/09/21 08:14 Aspirin (Aspirin Enteric Coated) 81 mg DAILY PO 12/30/20 09:00 01/09/21 08:13 Atorvastatin Calcium (Lipitor) 10 mg QHS PO 12/29/20 21:00 01/09/21 21:01 Donepezil HCl (Aricept) 10 mg DAILY PO 12/30/20 09:00 01/09/21 08:13 Hydrochlorothiazide (Microzide) 12.5 mg DAILY PO 12/30/20 09:00 01/09/21 08:13 Hydroxyzine HCl (Atarax) 50 mg QHS PO 12/29/20 21:00 01/09/21 21:01 Memantine (Namenda) 10 mg BID PO 12/29/20 21:00 01/09/21 21:00 Lisinopril (Prinivil) 40 mg DAILY PO 12/30/20 09:00 01/09/21 08:14 Lorazepam (Ativan) 2 mg PRN Q8HRS PRN PO ANXIETY / AGITATION 12/29/20 12:15 Scopolamine (Transderm-Scop) 1 patch 1X ONCE TD 12/29/20 20:00 12/29/20 20:04 DC 12/29/20 20:29 Divalproex Sodium (Depakote Sprinkles) 250 mg 1X ONCE PO 12/30/20 19:00 12/30/20 19:01 DC 12/30/20 20:40 Divalproex Sodium (Depakote Sprinkles) 125 mg BID PO 12/31/20 09:00 6/1/21 11:55 DC 01/02/21 08:15 Divalproex Sodium (Depakote Sprinkles) 250 mg BID PO 01/02/21 21:00 01/06/21 17:20 DC 01/06/21 08:38 Risperidone (RisperDAL) 0.25 mg 1500 PO 01/03/21 18:00 01/09/21 14:35 Divalproex Sodium (Depakote Sprinkles) 500 mg BID PO 01/06/21 21:00 01/09/21 21:01 I have reviewed the current psychotropics carefully including drug interactions. Risk benefit ratio favors no change other than as noted in my dictated progress note. Diagnosis: Problems: (1) Dementia with behavioral disturbance (2) Major neurocognitive disorder (3) Impulse control disorder, unspecified (4) Anxiety disorder, unspecified (5) Dementia, vascular, with depression (6) Dementia, vascular, with delusions (7) Dementia in Alzheimer's disease with depression (8) Dementia in Alzheimer's disease with delusions ABRIL MARTINEZ MD Jan 10, 2021 06:38
[2021-01-10] MEDS: MEMANTINE 10 MG TABLET. PO SCH (08:12)
[2021-01-10] MEDS: hydroCHLOROthiazide 12.5 MG CAPSULE PO SCH (08:12)
[2021-01-10] MEDS: LISINOPRIL 20 MG TABLET PO SCH (08:12)
[2021-01-10] MEDS: DIVALPROEX 125 MG CAP.SPRINK PO SCH (08:12)
[2021-01-10 08:13] VITALS: BP 121/76
[2021-01-10] MEDS: amLODIPine BESYLATE 10 MG TABLET PO SCH (08:13)
[2021-01-10] MEDS: ASPIRIN ENTERIC COATED 81 MG TABLET.DR. PO SCH (08:13)
[2021-01-10] MEDS: DONEPEZIL HCL 10 MG TABLET PO SCH (08:13)
--- NOTE | 2021-01-10 09:35 | NUR ---
SW received call from Ravi re: an update on pt. It appears that no medication changes have been made since January 06 and pt labs are stable. Pt did have an incident of coming out of his room naked; however, was able to be redirected with no physical or verbal aggression noted. At this time, Ravi is going to request that pt is discharge from the unit.
--- NOTE | 2021-01-10 10:18 | NUR ---
Nursing note: Pt in dining room at time of AM med pass and assessment. He is pleasant, med compliant and cooperative. Pt occasionally wanders the unit and into other pt rooms, but is currently resting in his bed. Will continue to monitor.
[2021-01-10] MEDS: risperiDONE 0.25 MG TABLET. PO SCH (14:26)
--- NOTE | 2021-01-10 15:30 | NUR ---
Transition Record was faxed to follow-up provider with the following elements: Reason for admission, procedures, tests, principal diagnosis, pending studies, patient instructions, 24/02 contact information for unit, phone number to obtain pending test results, plan for follow-up care, physician follow-up, advanced directive information, and medication list with dose, duration and instructions. This information was included in the following documents: History and physical, lab results, study results, progress notes, social work planning form, DC instruction form, patient visit summary, and medication reconciliation form. Date & time record faxed: 01/09/21 @ [phone] Record faxed to: Antonino Morales @ [phone] Record discussed with/ report given to: Lauren @ [phone]
--- NOTE | 2021-01-10 22:12 | PDOC ---
Exam Note: Tereso Note: Please also refer to the separate dictated note~for this date of service dictated separately.~Patient seen individually. Discussed the patient with Nursing staff reviewed the chart.~Reviewed interim history and current functioning. Reviewed vital signs,~Labs/ Radiology~and current medications noted below. Continue current treatment with the changes noted in the dictated addendum note Assessment: Vital Signs/I&O: Vital Signs Date Time Temp Pulse Resp B/P (MAP) Pulse Ox O2 Delivery O2 Flow Rate FiO2 01/10/21 08:13 87 121/76 01/10/21 06:33 98.4 18 94 01/09/21 06:12 Room Air I & O 01/09/21 01/09/21 01/10/21 15:00 23:00 07:00 Intake Total 480 ml 360 ml Balance 480 ml 360 ml Labs: Laboratory Tests Test 01/10/21 06:22 01/10/21 07:53 Ammonia 22 mcmol/L (11-34) Glucose (Fingerstick) 89 mg/dL (70-99) Current Medications: Meds: Laboratory Tests Test 01/10/21 06:22 01/10/21 07:53 Ammonia 22 mcmol/L Glucose (Fingerstick) 89 mg/dL Current Medications Medications (Trade) Dose Ordered Sig/Snow Route PRN Reason Start Time Stop Time Status Last Admin Dose Admin Acetaminophen (Tylenol) 650 mg PRN Q6HRS PRN PO MILD PAIN / TEMP > 100.3'F 12/29/20 11:15 01/10/21 15:20 DC Multi-Ingredient Ointment (Analgesic [place]) 1 dina PRN QID PRN TP MUSCLE PAIN 12/29/20 11:15 01/10/21 15:20 DC Al Hydroxide/Mg Hydroxide (Mylanta Plus Xs) 15 ml PRN AFTMEALHC PRN PO DYSPEPSIA 12/29/20 11:15 01/10/21 15:20 DC Magnesium Hydroxide (Milk Of Magnesia) 2,400 mg PRN QHS PRN PO CONSTIPATION 12/29/20 11:15 01/10/21 15:20 DC Amlodipine Besylate (Norvasc) 10 mg DAILY PO 12/30/20 09:00 01/10/21 15:20 DC 01/10/21 08:13 Aspirin (Aspirin Enteric Coated) 81 mg DAILY PO 12/30/20 09:00 01/10/21 15:20 DC 01/10/21 08:13 Atorvastatin Calcium (Lipitor) 10 mg QHS PO 12/29/20 21:00 01/10/21 15:20 DC 01/09/21 21:01 Donepezil HCl (Aricept) 10 mg DAILY PO 12/30/20 09:00 01/10/21 15:20 DC 01/10/21 08:13 Hydrochlorothiazide (Microzide) 12.5 mg DAILY PO 12/30/20 09:00 01/10/21 15:20 DC 01/10/21 08:12 Hydroxyzine HCl (Atarax) 50 mg QHS PO 12/29/20 21:00 01/10/21 15:20 DC 01/09/21 21:01 Memantine (Namenda) 10 mg BID PO 12/29/20 21:00 01/10/21 15:20 DC 01/10/21 08:12 Lisinopril (Prinivil) 40 mg DAILY PO 12/30/20 09:00 01/10/21 15:20 DC 01/10/21 08:12 Lorazepam (Ativan) 2 mg PRN Q8HRS PRN PO ANXIETY / AGITATION 12/29/20 12:15 01/10/21 15:20 DC Scopolamine (Transderm-Scop) 1 patch 1X ONCE TD 12/29/20 20:00 12/29/20 20:04 DC 12/29/20 20:29 Divalproex Sodium (Depakote Sprinkles) 250 mg 1X ONCE PO 12/30/20 19:00 12/30/20 19:01 DC 12/30/20 20:40 Divalproex Sodium (Depakote Sprinkles) 125 mg BID PO 12/31/20 09:00 01/02/21 11:55 DC 01/02/21 08:15 Divalproex Sodium (Depakote Sprinkles) 250 mg BID PO 01/02/21 21:00 01/06/21 17:20 DC 01/06/21 08:38 Risperidone (RisperDAL) 0.25 mg 1500 PO 01/03/21 18:00 01/10/21 15:20 DC 01/10/21 14:26 Divalproex Sodium (Depakote Sprinkles) 500 mg BID PO 01/06/21 21:00 01/10/21 15:20 DC 01/10/21 08:12 I have reviewed the current psychotropics carefully including drug interactions. Risk benefit ratio favors no change other than as noted in my dictated progress note. Diagnosis: Problems: (1) Dementia with behavioral disturbance (2) Major neurocognitive disorder (3) Impulse control disorder, unspecified (4) Anxiety disorder, unspecified (5) Dementia, vascular, with depression (6) Dementia, vascular, with delusions (7) Dementia in Alzheimer's disease with depression (8) Dementia in Alzheimer's disease with delusions ABRIL MARTINEZ MD Jan 10, 2021 22:12
--- NOTE | 2021-01-11 23:14 | DS ---
DATE OF DISCHARGE: 01/10/2021 DISCHARGE SUMMARY/PSYCHIATRIC PROGRESS NOTE This is a late entry date of service 01/10 covers elements not covered in my initial note. REASON FOR ADMISSION: Please refer to the admission history for details. Briefly, the patient is a 60-year-old male referred from [facility] by his primary care physician, psychiatrist, on account of worsening confusion, laughing inappropriately, pacing. He jumped out of a window to abscond from the facility, constantly moving. He entered someone's home and picked up a hammer, was deemed dangerous, out of control, unmanageable, has failed outpatient psychiatric interventions. He has been refusing cares, depressed, anxious, restless, rearranging furniture, slapped staff member on the block. He has failed outpatient psychiatric interventions and resulting in this referral. SIGNIFICANT FINDINGS AND CLINICAL COURSE: Following admission, the patient was seen individually by myself from a psychiatric standpoint medical followup with Dr. Hernández/Dr. Blanca. The patient remained extremely disorganized, agitated and while on the medical surgical floor awaiting the COVID-19 screening. He had tried to jump out of the second floor window and a passerby noticed it and alerted the nursing staff, this was before he came on a unit. Adjustments were made in his psychotropics. He seemed to respond to a combination of Depakote sprinkles 500 mg b.i.d., Risperdal 0.25 mg 1500 hours, hydroxyzine 50 mg at bedtime, Namenda 10 mg b.i.d., Aricept 10 mg a day. Prior to discharge, no CV, , pulmonary, eyes, ENT system symptoms on review. Reliability poor. MENTAL STATUS EXAM: Oriented to himself. Insight, judgment, recent and remote memory, attention, concentration, fund of knowledge poor consistent with his diagnoses. FINAL DIAGNOSES: Major neurocognitive disorder, possibly Alzheimer's, vascular with delusion, depression; psychotic disorder, unspecified; impulse control disorder, unspecified. Rest unchanged from admission. DISCHARGE MEDICATIONS: Please refer to the MRAD. DISCHARGE INSTRUCTIONS: [facility] at [facility]. Time for discharge day management greater than 30 minutes. The patient had some elevation of ammonia level while on Depakote, but the last level on 01/10 prior to his discharge ammonia was down to 22. MMA/AUREA DR: Kamla TID: [id number]
== END 2021-01-10 15:19 | DRG 57 ==
LOC: GEROPSY 09:17
PROVIDERS: ADMIT Psychiatry & Neurology Psychiatry; ATTEND Psychiatry & Neurology Psychiatry
DX: G30.9 Alzheimer's disease, unspecified (principal); F02.81 Dementia in other diseases classified elsewhere, unspecified severity, with behavioral disturbance; F01.51 Vascular dementia, unspecified severity, with behavioral disturbance; E78.5 Hyperlipidemia, unspecified; I10 Essential (primary) hypertension; Z20.822 Contact with and (suspected) exposure to COVID-19; F41.9 Anxiety disorder, unspecified; F63.9 Impulse disorder, unspecified; F32.9 Major depressive disorder, single episode, unspecified
CPT/HCPCS: 36415; 70450; 74022; 80053; 80164; 82140; 82947; 85025; 85027; U0003